=== PATIENT | female | born 1975 | race Caucasian/White ===

== ENCOUNTER → 2019-12-21 09:40 | Outpatient (BNVA) | payer SELFPAY | PROVIDERS: Family Provider Family Medicine; Visit Provider Nurse Practitioner Family | DX: E11.9 Type 2 diabetes mellitus without complications (principal); G62.9 Polyneuropathy, unspecified; I10 Essential (primary) hypertension; E78.5 Hyperlipidemia, unspecified | CPT/HCPCS: 80053; 80061; 83036; 84443; 85025 ==

== ENCOUNTER → 2020-03-27 08:57 | Outpatient (BNVA) | payer SELFPAY | PROVIDERS: Family Provider Family Medicine; PCP Nurse Practitioner Family; Visit Provider Nurse Practitioner | DX: R05 Cough (principal) | CPT/HCPCS: 71046 ==

== ENCOUNTER → 2020-04-04 14:15 | Outpatient (BNVA) | payer SELFPAY | PROVIDERS: Family Provider Family Medicine; PCP Nurse Practitioner Family; Visit Provider Nurse Practitioner | DX: K11.20 Sialoadenitis, unspecified (principal) | CPT/HCPCS: 85025 ==

== ENCOUNTER → 2020-04-26 14:40 | Outpatient (BNVA) | payer SELFPAY | PROVIDERS: Family Provider Family Medicine; PCP Nurse Practitioner Family; Visit Provider Nurse Practitioner Family | DX: E11.65 Type 2 diabetes mellitus with hyperglycemia (principal); Z79.4 Long term (current) use of insulin; R10.9 Unspecified abdominal pain | CPT/HCPCS: 80053; 80061; 82150; 83036; 83690; 85025 ==

== ENCOUNTER 2020-07-23 11:30 | Inpatient (IN) | payer OTHER, SELFPAY ==
[2020-07-23] VITALS (78 sets, daily range): BP systolic 116–166; BP diastolic 46–102; PULSE 70–105; RESP 13–29; TEMP 36.6–36.9; O2SAT 82–95; BMI 41.0
--- NOTE | 2020-07-23 11:51 | XRR_ITS ---
PROCEDURE INFORMATION: Exam: XR Chest, 1 View Exam date and time: 07/23/2020 11:55 AM Age: 44 years old Clinical indication: Shortness of breath; Additional info: Covid TECHNIQUE: Imaging protocol: XR of the chest Views: 1 view. COMPARISON: CR XR chest 2V* [id number] 03/27/2020 8:57 AM FINDINGS: Lungs: Hypoinflation with interstitial prominence and mild left-sided airspace disease. Pleural space: No significant pleural effusion. Heart/Mediastinum: No cardiomegaly. Bones/joints: Mild degenerative change. XR/XR chest 1V portable [id number] IMPRESSION: Hypoinflation with interstitial prominence and mild left-sided airspace disease.
--- NOTE | 2020-07-23 11:58 | W.ED.SOB ---
HPI - SOB/Dyspnea General: Chief Complaint: Shortness of Breath/Dyspnea Stated Complaint: COVID POSITIVE WITH WORSE SOB Time Seen by Provider: 07/23/20 11:40 History of Present Illness: HPI Narrative: This patient is a 44-year-old female who presents today with shortness of breath. She has a positive COVID test done on Friday. She believes she was exposed at work 13 days ago. She started developing symptoms 8 days ago. She had not had shortness of breath until this morning. She has had fever, cough, body aches, nausea, loss of taste and smell. She is a diabetic and is morbidly obese. She has hypertension that is well controlled with medication. MD elicited complaint: shortness of breath and cough Pertinent past history: diabetes Onset (ago): day(s) (COVID symptoms 8 days ago, shortness of breath today) Timing: constant Severity: moderate Exacerbating factors: nothing Relieving factors: nothing Known history of: diabetes Associated symptoms: Reports cough, fever(s), myalgias and nausea Review of Systems General: Reports: 10 or more systems reviewed and unremarkable except in HPI and below Const: Reports: fever(s) GI: Reports: nausea PFSH ED PFSH: Medical History Anxiety Hyperlipemia Hypertension Neuropathy Surgical History History of cholecystectomy 2009 History of laparoscopic-assisted vaginal hysterectomy BSO 2017 History of tubal ligation (~2002) Family History Mother , age 65 Diabetes Cancer Pancreatic Heart disease Denies family history of Anesthesia complication Bleeding disorder Social History Smoking and tobacco status: never smoked Second hand smoke exposure: No Smoking risk assessment/counseling performed?: No Alcohol intake: never Desire information about alcohol rehabilitation?: No Counseling given: No Desire information about substance/drug rehabilitation?: No Counseling given: No Adopted: No Caregiver/support person: No Lives independently: Yes Household members: spouse and children Housing: House Marital status: service: No Current occupational status: employed Current occupation: [employer] Current occupational exposures/hazards: No History of recent travel: No Current gender identity: Female Physical Exam Const: COMMON NORMALS: patient oriented x3 and alert GENERAL APPEARANCE: cooperative, in distress (Mild) and anxious NUTRITIONAL APPEARANCE: obese morbidly obese HENMT: HEAD & SCALP: normal to inspection FACE & SINUS: normal facial exam Eye: GENERAL EYE: appearance normal, both eyes and all related structures Neck/C-Spine: COMMON NORMALS: supple, no meningeal signs and no JVD Chest: COMMONS NORMALS: normal inspection of the chest Resp: EFFORT & INSPECTION: Yes tachypneic and Yes labored (Slightly) AUSCULTATION: rhonchi (Bilateral, left worse than right) Cardio: COMMON NORMALS: no JVD, regular rate, regular rhythm and No murmurs present (Cardio) RATE: regular rate RHYTHM: regular rhythm GI: COMMON NORMALS: Normal to inspection, nondistended, normoactive bowel sounds present, Soft to palpation and non-tender INSPECTION: Yes normal to inspection AUSCULTATION: Yes normoactive bowel sounds PALPATION: Yes Soft to palpation Back/Pelvis: COMMON NORMALS: thoracic and lumbar spine normal to inspection Extremity: COMMON NORMALS: normal to inspection Neuro: COMMON NORMALS: patient oriented x3, moves all extremities, no focal motor deficits and no sensory deficits noted SENSORIUM/ORIENTATION: Yes alert MENINGEAL SIGNS: Yes no meningeal signs Psych: COMMON NORMALS: mental status grossly normal, cooperative and normal affect Skin: COMMON NORMALS: no rashes or lesions noted and turgor normal NARRATIVE SKIN EXAM: Areas of excoriation on both forearms GENERAL SKIN EXAM: no rashes or lesions noted and turgor normal Course ED course: This patient's room air saturation bounced between 90 and 93 while resting on the stretcher. Her chest x-ray shows some patchy infiltrates. Her labs are consistent with developing COVID inflammation. I discussed the options of following this at home versus coming into the hospital for oxygen and observation. Given that her oxygen is very borderline and she has multiple risk factors coupled with the fact that she lives a good distance from the hospital I think it is reasonable to admit her for treatment. She prefers this option and has been started on Decadron, Lovenox, remdesivir. Dr. Borrero will admit her to the VICU. Vital Signs: Vital signs: Vital Signs Temperature 98.4 F 07/23/20 11:38 Pulse Rate 96 07/23/20 11:38 Respiratory Rate 14 07/23/20 11:38 Blood Pressure 138/86 07/23/20 11:38 Pulse Oximetry 90 07/23/20 11:38 MDM - SOB/Dyspnea Lab Data: Labs: Lab Results 07/23/20 07/23/20 07/23/20 Range/Units 11:50 12:00 12:00 WBC 3.3 L (4.0-10.0) 10^3/ uL RBC 4.97 (4.1-5.3) 10^6/u L Hgb 14.0 (11.5-15.3) g/dL Hct 41.8 (37.0-47.0) % MCV 84.1 (81-99) fL MCH 28.2 (28.0-34.0) pg MCHC 33.5 (30.0-36.0) g/dL RDW 12.7 (12.1-15.1) % Plt Count 151 (130-400) 10^3/c mm MPV 10.5 H (7.4-10.4) fL Neut % (Auto) 64.4 % Lymph % (Auto) 27.1 % Hopkins % (Auto) 6.7 % Eos % (Auto) 0.0 % Baso % (Auto) 0.3 % Neut # (Auto) 2.11 (1.8-7.7) 10^3/u L Lymph # (Auto) 0.9 (0.8-4.8) 10^3/u L Hopkins # (Auto) 0.2 (0.2-0.9) 10^3/u L Eos # (Auto) 0.0 (0.0-0.8) 10^3/u L Baso # (Auto) 0.0 (0.0-0.1) 10^3/u L Nucleated RBC % (a uto) 0 % Nucleated RBCs # 0.0 /100WBC PT 12.80 (12.1-14.9) SECO NDS INR 0.93 (0.8-1.2) Fibrinogen 450 (174-498) mg/dL D-Dimer 1.02 H (0-0.59) ug/mIFE U Sodium 136 (136-145) mmol/L Potassium 3.6 (3.5-5.1) mmol/L Chloride 99 (98-107) mmol/L Carbon Dioxide 24 (22-29) mmol/L Anion Gap 16.6 (5-19) BUN 6 (6-20) mg/dL Creatinine 0.6 (0.5-0.9) mg/dL GFR Calculation 107.6 (90-130) mL/min Glucose 281 H (65-115) mg/dL Calculated Osmolal ity 288 (285-295) mOsm/k g Lactic Acid (0.5-2.2) mmol/L Calcium 8.8 (8.5-10.5) mg/dL Ferritin 293 H (15-150) ng/mL Total Bilirubin 0.5 (0.15-1.2) mg/dL AST 38 H (0-32) U/L ALT 40 H (0-33) U/L Alkaline Phosphata se 82 (35-105) IU/L C-Reactive Protein 35.9 H (0.0-4.9) mg/L NT-Pro-B Natriuret Pep 13 (0-125) pg/mL Total Protein 7.5 (6.6-8.7) g/dL Albumin 4.1 (3.5-5.2) g/dL Globulin 3.4 (1.3-4.6) g/dL Procalcitonin 0.08 (0-0.5) ng/mL HCG, Qual (Negative) Influenza Type A A g (Negative) Influenza Type B A g (Negative) 07/23/20 07/23/20 07/23/20 Range/Units 12:00 12:00 12:04 WBC (4.0-10.0) 10^3/ uL RBC (4.1-5.3) 10^6/u L Hgb (11.5-15.3) g/dL Hct (37.0-47.0) % MCV (81-99) fL MCH (28.0-34.0) pg MCHC (30.0-36.0) g/dL RDW (12.1-15.1) % Plt Count (130-400) 10^3/c mm MPV (7.4-10.4) fL Neut % (Auto) % Lymph % (Auto) % Hopkins % (Auto) % Eos % (Auto) % Baso % (Auto) % Neut # (Auto) (1.8-7.7) 10^3/u L Lymph # (Auto) (0.8-4.8) 10^3/u L Hopkins # (Auto) (0.2-0.9) 10^3/u L Eos # (Auto) (0.0-0.8) 10^3/u L Baso # (Auto) (0.0-0.1) 10^3/u L Nucleated RBC % (a uto) % Nucleated RBCs # /100WBC PT (12.1-14.9) SECO NDS INR (0.8-1.2) Fibrinogen (174-498) mg/dL D-Dimer (0-0.59) ug/mIFE U Sodium (136-145) mmol/L Potassium (3.5-5.1) mmol/L Chloride (98-107) mmol/L Carbon Dioxide (22-29) mmol/L Anion Gap (5-19) BUN (6-20) mg/dL Creatinine (0.5-0.9) mg/dL GFR Calculation (90-130) mL/min Glucose (65-115) mg/dL Calculated Osmolal ity (285-295) mOsm/k g Lactic Acid 2.0 (0.5-2.2) mmol/L Calcium (8.5-10.5) mg/dL Ferritin (15-150) ng/mL Total Bilirubin (0.15-1.2) mg/dL AST (0-32) U/L ALT (0-33) U/L Alkaline Phosphata se (35-105) IU/L C-Reactive Protein (0.0-4.9) mg/L NT-Pro-B Natriuret Pep (0-125) pg/mL Total Protein (6.6-8.7) g/dL Albumin (3.5-5.2) g/dL Globulin (1.3-4.6) g/dL Procalcitonin (0-0.5) ng/mL HCG, Qual Negative (Negative) Influenza Type A A g Negative (Negative) Influenza Type B A g Negative (Negative) Discharge Plan Discharge Admit Provider: Jairo Borrero Coding Level of Care Code ED Tile Layer Supervisor for Chg Fwd Exam Comprehensive
[2020-07-23] MEDS: dexamethasone 10 mg/mL INJ IVP (12:09)
[2020-07-23] MEDS: enoxaparin 120 mg/0.8 mL Syringe SUBCUT (12:09)
[2020-07-23 12:13] LABS: Basophils % 0.3 %; Hematocrit 41.8 % (37.0-47.0); Lymphocytes # 0.9 10^3/uL (0.8-4.8); Lymphocytes % 27.1 %; Mean Corpuscular HGB Conc 33.5 g/dL (30.0-36.0); Mean Corpuscular Hemoglobin 28.2 pg (28.0-34.0); Mean Corpuscular Volume 84.1 fL (81-99); Mean Platelet Volume 10.5 fL (7.4-10.4); Monocytes # 0.2 10^3/uL (0.2-0.9); Monocytes % 6.7 %; Neutrophils # 2.11 10^3/uL (1.8-7.7); Neutrophils % 64.4 %; Nucleated Red Blood Cells % 0 %; Platelet Count 151 10^3/cmm (130-400); Red Blood Count 4.97 10^6/uL (4.1-5.3); Red Cell Distribution Width 12.7 % (12.1-15.1); White Blood Count 3.3 10^3/uL (4.0-10.0)
[2020-07-23 12:37] LABS: Fibrinogen 450 mg/dL (174-498); INR 0.93 (0.8-1.2)
[2020-07-23 12:40] LABS: Influenza A by IFA Negative (Negative); Influenza B by IFA Negative (Negative)
[2020-07-23 12:40] LABS: D Dimer 1.02 ug/mIFEU (0-0.59)
[2020-07-23 12:44] LABS: Alanine Aminotransferase 40 U/L (0-33); Albumin Level 4.1 g/dL (3.5-5.2); Alkaline Phosphatase 82 IU/L (35-105); Anion Gap 16.6 (5-19); Aspartate Amino Transferase 38 U/L (0-32); Blood Urea Nitrogen 6 mg/dL (6-20); Calcium 8.8 mg/dL (8.5-10.5); Carbon Dioxide 24 mmol/L (22-29); Chloride 99 mmol/L (98-107); Globulin 3.4 g/dL (1.3-4.6); Glomerular Filtration Rate 107.6 mL/min (90-130); Glucose 281 mg/dL (65-115); NT Pro B Type Natriuretic Pept 13 pg/mL (0-125); Osmolality Calculated 288 mOsm/kg (285-295); Potassium 3.6 mmol/L (3.5-5.1); Sodium 136 mmol/L (136-145); Total Bilirubin 0.5 mg/dL (0.15-1.2); Total Protein 7.5 g/dL (6.6-8.7)
[2020-07-23 12:45] LABS: HCG, Serum Qual Negative (Negative)
[2020-07-23 14:19] LABS: Procalcitonin 0.08 ng/mL (0-0.5)
[2020-07-23 14:31] LABS: C Reactive Protein 35.9 mg/L (0.0-4.9); Ferritin 293 ng/mL (15-150)
--- NOTE | 2020-07-23 15:53 | PM.HP ---
Providers/Chief Complaint Admitting Physician: Jairo Borrero MD Primary Care Provider: KARTIK Vance Chief Complaint: COVID POSITIVE WITH WORSE SOB History of Present Illness Yara Robert is a 44 year old female with past medical history of hypertension diabetes and allergic rhinitis came in with chief complaint of low-grade fever, chills, malaise, generalized body pain, headache, nausea vomiting diarrhea, anosmia, abdominal discomfort, headache, dry cough started on Friday. Her symptoms began after being exposed to her colleagues at work place. Her is also COVID positive and currently he is also in hospital. X-ray chest is suggestive of airspace disease. Review of Systems General: Reports: 10 or more systems reviewed and unremarkable except in HPI and below Const: Reports: fever(s), chills, body aches, change in appetite, fatigue, malaise, night sweats and diaphoresis Eyes: Denies: change in vision, blurry vision, photophobia, eye discomfort, eye discharge, eye redness, yellow eyes or dry eyes ENMT: Reports: throat pain; Denies: enlarged tonsils, odynophagia, mouth pain, swelling of lips/tongue or bleeding gums Card: Denies: palpitations, edema, swelling of feet/ankles, dyspnea on exertion, orthopnea or leg pain with exertion Resp: Denies: dyspnea, productive cough, wheezing or pain on inspiration GI: Denies: abdominal pain, nausea, vomiting, diarrhea or constipation : Denies: flank pain Musc: Denies: back pain, extremity pain or extremity swelling Neuro: Denies: headache(s), difficulty walking or confusion Psych: Denies: anxiety, depression or mood swings Medications/Allergies Home Medications Medication Instructions Recorded Confirmed Last Taken Type triamcinolone acetonide 0.1 % 1 applic TOPICAL BID #80 gm 12/21/19 07/23/20 Unknown Rx topical cream pen needle, diabetic 31 gauge x #100 each 01/19/20 07/23/20 Unknown Rx 1/4 ascorbate calcium (vitamin C) 500 500 mg PO BID 03/14/20 07/23/20 Unknown History mg tablet cranberry extract 250 mg capsule 250 mg PO BID cap 03/14/20 07/23/20 Unknown History multivitamin with minerals 1 tab PO BID tab 03/14/20 07/23/20 Unknown History albuterol sulfate 90 mcg/actuation 2 puff INHALATION Q6H PRN #18 gm 04/22/20 07/23/20 07/23/20 Rx aerosol inhaler exenatide See Rx Instructions .ROUTE 04/26/20 07/23/20 07/22/20 Rx .COMPLEX #1.2 ml gabapentin 300 mg capsule See Rx Instructions .ROUTE 04/26/20 07/23/20 07/23/20 Rx .COMPLEX #120 cap insulin glargine 100 unit/mL (3 See Rx Instructions .ROUTE 04/26/20 07/23/20 07/22/20 Rx mL) subcutaneous pen .COMPLEX #45 ml lisinopril 10 mg tablet See Rx Instructions .ROUTE 04/26/20 07/23/20 07/22/20 Rx .COMPLEX #30 tab sertraline 100 mg tablet 200 mg PO DAILY #60 tab 04/26/20 07/23/20 07/22/20 Rx glipizide 5 mg tablet 5 mg PO BID #60 tab 05/09/20 07/23/20 07/23/20 Rx pravastatin 80 mg tablet 80 mg PO DAILY #30 tab 05/09/20 07/23/20 07/22/20 Rx montelukast 10 mg tablet See Rx Instructions .ROUTE 07/14/20 07/23/20 07/22/20 Rx .COMPLEX #30 tab omeprazole 20 mg capsule,delayed See Rx Instructions .ROUTE 07/14/20 07/23/20 07/22/20 Rx release .COMPLEX #30 cap metformin 500 mg PO BID 07/23/20 07/23/20 07/22/20 History Allergies Allergy/AdvReac Type Severity Reaction Status Date / Time No Known Allergies Allergy Verified 07/23/20 13:49 PFSH Acute PFSH: Medical History Anxiety Hyperlipemia Hypertension Neuropathy Surgical History History of cholecystectomy 2009 History of laparoscopic-assisted vaginal hysterectomy BSO 2016 History of tubal ligation (~2002) Family History Mother , age 65 Diabetes Cancer Pancreatic Heart disease Denies family history of Anesthesia complication Bleeding disorder Social History Smoking and tobacco status: never smoked Second hand smoke exposure: No Smoking risk assessment/counseling performed?: No Alcohol intake: never Desire information about alcohol rehabilitation?: No Counseling given: No Desire information about substance/drug rehabilitation?: No Counseling given: No Adopted: No Caregiver/support person: No Lives independently: Yes Household members: spouse and children Housing: House Marital status: service: No Current occupational status: employed Current occupation: [employer] Current occupational exposures/hazards: No History of recent travel: No Current gender identity: Female Vitals/I&O/Wt Last Vital Signs Temp 98.4 F 07/23/20 11:38 Pulse 101 H 07/23/20 15:44 Resp 28 H 07/23/20 15:44 BP 146/78 07/23/20 15:44 Pulse Ox 89 L 07/23/20 15:44 Weight last 48 hrs Weight 122.47 kg Physical Exam Const: COMMON NORMALS: patient oriented x3 HENMT: COMMON NORMALS: normocephalic, atraumatic, hearing grossly normal bilaterally and external ears normal HEAD & SCALP: normocephalic and atraumatic EXTERNAL EAR: Yes external ears normal Eye: COMMON NORMALS: no scleral icterus GENERAL EYE: appearance normal, both eyes and all related structures Chest: COMMONS NORMALS: normal inspection of the chest and normal palpation of entire chest wall CHEST: Yes Symmetrical chest wall rise Resp: COMMON NORMALS: normal respiratory effort, No retractions, No use of accessory muscles and clear to auscultation bilaterally EFFORT & INSPECTION: Yes symmetric chest movement AUSCULTATION: clear to auscultation bilaterally Cardio: COMMON NORMALS: regular rate, regular rhythm, S1 normal heart sound present, S2 normal heart sound present, No gallops present (Cardio), No murmurs present (Cardio), No rub (Cardio) and Peripheral pulses 2+ throughout RATE: regular rate RHYTHM: regular rhythm HEART SOUNDS: S1 normal heart sound present and S2 normal heart sound present PERIPHERAL PULSES: Peripheral pulses 2+ throughout GI: COMMON NORMALS: Normal to inspection, nondistended, normoactive bowel sounds present, Soft to palpation, non-tender, No hepatosplenomegaly present and no masses AUSCULTATION: Yes normoactive bowel sounds PALPATION: Yes Soft to palpation and Yes No hepatosplenomegaly present RECTAL EXAM: deferred Extremity: COMMON NORMALS: no clubbing, cyanosis or edema and no pedal edema Neuro: COMMON NORMALS: patient oriented x3 Data : 07/23/20 12:00 07/23/20 11:50 Micro: Microbiology 07/23/20 12:00 Blood Culture - Preliminary Blood SPECIMEN COLLECTED 07/23/20 11:52 Blood Culture - Preliminary Blood SPECIMEN COLLECTED CXR: I personally reviewed and interpreted this imaging study as follows: My impression: interstitial prominence and mild left-sided airspace disease. Radiologist's impression: Lungs: Hypoinflation with interstitial prominence and mild left-sided airspace disease. Pleural space: No significant pleural effusion. Heart/Mediastinum: No cardiomegaly. Bones/joints: Mild degenerative change. A&P Assessment and plan (1) Pneumonia due to COVID-19 virus: She comes in after known exposure to COVID-19 patient after being tested positive herself as well as her . She has typical symptoms of COVID-19 which includes and is not limited low-grade fever, chills, malaise, generalized body pain, headache, nausea vomiting diarrhea, anosmia, abdominal discomfort, headache, dry cough. X-ray chest is suggestive of airspace disease. Our current plan is to follow COVID protocol. Which includes remdesevir, dexamethasone, along with symptomatic treatment. At present she is requiring 2 L of oxygen via nasal cannula to maintain a saturation above 95%. She has minimum desaturation on exertion(high at 90s less than 95%). We will encourage her to use incentive spirometer. We will closely monitor the inflammatory marker includes interleukin's, CRP, ferritin. We will also monitor, Ddimer trend and keep a low threshold to initiate therapeutic anticoagulation is she is obese and has other hypercoagulable risk factors. Status: Acute (2) Type 2 diabetes mellitus: Kept on low-dose sliding scale. Monitor fingerstick Status: Chronic Qualifiers: Diabetes mellitus complication status: with hyperglycemia Diabetes mellitus termite treater helper insulin use: with termite treater helper use Qualified Code(s): E11.65 - Type 2 diabetes mellitus with hyperglycemia; Z79.4 - [facility] (current) use of insulin (3) Hypertension: Continue lisinopril 20 mg oral daily Status: Acute (4) Hyperlipemia: Continue atorvastatin 40 mg oral daily Status: Acute (5) Allergic rhinitis: No acute intervention Status: Acute Additional A&P Information CODE STATUS: Full code DVT prophylaxis: Lovenox 40 mg subc daily Attestations Medical Necessity Statement*: She needs to be in hospital for management of COVID pneumonia as well as other complications related to COVID. Coding Level of Care Code Acute Sales Representative Health Insurance for [employer] Fwd Exam Comprehensive Diagnoses Pneumonia due to COVID-19 virus U07.1; J12.89 Type 2 diabetes mellitus E11.65; Z79.4 Diabetes mellitus complication status: with hyperglycemia Diabetes mellitus termite treater helper insulin use: with termite treater helper use Hypertension I10 Hyperlipemia E78.5 Allergic rhinitis J30.9
[2020-07-23 16:10] LABS: Glucose Point of Care 272 mg/dL (70-110)
[2020-07-23] MEDS: albuterol 8 gm MDI 1 PUFF INHALATION ×2 (16:28→20:47)
[2020-07-23] MEDS: montelukast sodium 10 mg Tablet PO (17:18)
[2020-07-23] MEDS: triamcinolone 0.1% cream 15 gm 1 APPLIC TOPICAL (17:18)
[2020-07-23] MEDS: lisinopril 20 mg Tablet PO (17:18)
[2020-07-23 20:03] LABS: Glucose Point of Care 357 mg/dL (70-110)
[2020-07-23] MEDS: atorvastatin 40 mg Tablet PO (20:48)
[2020-07-24] VITALS (69 sets, daily range): BP systolic 86–167; BP diastolic 52–107; PULSE 61–91; RESP 15–30; TEMP 36.6–37.1; O2SAT 87–98; BMI 41.8
[2020-07-24] MEDS: albuterol 8 gm MDI 1 PUFF INHALATION ×6 (04:00→20:00)
[2020-07-24 05:12] LABS: Basophils % 0.3 %; Hematocrit 38.2 % (37.0-47.0); Hemoglobin 12.9 g/dL (11.5-15.3); Lymphocytes # 0.9 10^3/uL (0.8-4.8); Lymphocytes % 22.8 %; Mean Corpuscular HGB Conc 33.8 g/dL (30.0-36.0); Mean Corpuscular Hemoglobin 28.1 pg (28.0-34.0); Mean Corpuscular Volume 83.2 fL (81-99); Mean Platelet Volume 10.5 fL (7.4-10.4); Monocytes # 0.3 10^3/uL (0.2-0.9); Monocytes % 6.7 %; Neutrophils # 2.66 10^3/uL (1.8-7.7); Neutrophils % 68.9 %; Nucleated Red Blood Cells % 0 %; Platelet Count 174 10^3/cmm (130-400); Red Blood Count 4.59 10^6/uL (4.1-5.3); Red Cell Distribution Width 12.8 % (12.1-15.1); White Blood Count 3.9 10^3/uL (4.0-10.0)
[2020-07-24 05:39] LABS: Alanine Aminotransferase 34 U/L (0-33); Alkaline Phosphatase 70 IU/L (35-105); Aspartate Amino Transferase 29 U/L (0-32); Blood Urea Nitrogen 10 mg/dL (6-20); Calcium 8.6 mg/dL (8.5-10.5); Carbon Dioxide 22 mmol/L (22-29); Chloride 102 mmol/L (98-107); Glomerular Filtration Rate 171.8 mL/min (90-130); Glucose 297 mg/dL (65-115); Magnesium 2.1 mg/dL (1.7-2.3); Osmolality Calculated 293 mOsm/kg (285-295); Sodium 138 mmol/L (136-145); Total Bilirubin 0.3 mg/dL (0.15-1.2)
[2020-07-24 05:44] LABS: Anion Gap 17.8 (5-19)
[2020-07-24 05:45] LABS: Potassium 3.8 mmol/L (3.5-5.1); Procalcitonin 0.09 ng/mL (0-0.5)
[2020-07-24 07:58] LABS: Glucose Point of Care 265 mg/dL (70-110)
[2020-07-24] MEDS: enoxaparin 40 mg/0.4 mL Syringe SUBCUT (09:29)
[2020-07-24] MEDS: dexamethasone 10 mg/mL INJ 6 MG IVP (09:30)
[2020-07-24] MEDS: lisinopril 20 mg Tablet PO ×2 (09:30→17:45)
[2020-07-24] MEDS: pantoprazole DR 40 mg Tablet PO (09:30)
[2020-07-24] MEDS: triamcinolone 0.1% cream 15 gm 1 APPLIC TOPICAL ×2 (09:42→17:13)
[2020-07-24] MEDS: sertraline 100 mg Tablet 200 MG PO (09:47)
[2020-07-24 12:02] LABS: Glucose Point of Care 305 mg/dL (70-110)
[2020-07-24] MEDS: benzonatate 100 mg Capsule 200 MG PO (13:08)
--- NOTE | 2020-07-24 14:33 | PM.PN ---
Subjective Subjective: Interval history: Patient is doing fine. She is still having some nonproductive cough and has minimal short of breath with exertion. Denies any fever any chills, nausea vomiting abdominal pain. overall she has improved. We will continue to monitor her respiratory function. She is already on COVID protocol (LUPE and Dexa) Vitals and labs have been reviewed. Medications: Reviewed: Yes Vitals/I&O/Wt Last Vital Signs Temp 98.7 F 07/24/20 12:00 Pulse 78 07/24/20 12:00 Resp 22 H 07/24/20 12:00 BP 164/87 07/24/20 12:00 Pulse Ox 93 07/24/20 12:00 07/23/20 07/24/20 07/24/20 22:59 06:59 14:59 Intake Total 910 / 910 450 / 1360 960 / 960 Balance 910 / 910 450 / 1360 960 / 960 Weight last 48 hrs Weight 124.795 kg Weight 122.47 kg Physical Exam Const: COMMON NORMALS: patient oriented x3 HENMT: COMMON NORMALS: normocephalic, atraumatic, hearing grossly normal bilaterally and external ears normal HEAD & SCALP: normocephalic and atraumatic EXTERNAL EAR: Yes external ears normal Eye: COMMON NORMALS: no scleral icterus GENERAL EYE: appearance normal, both eyes and all related structures Chest: COMMONS NORMALS: normal inspection of the chest and normal palpation of entire chest wall CHEST: Yes Symmetrical chest wall rise Resp: COMMON NORMALS: normal respiratory effort, No retractions, No use of accessory muscles and clear to auscultation bilaterally EFFORT & INSPECTION: Yes symmetric chest movement AUSCULTATION: clear to auscultation bilaterally Cardio: COMMON NORMALS: regular rate, regular rhythm, S1 normal heart sound present, S2 normal heart sound present, No gallops present (Cardio), No murmurs present (Cardio), No rub (Cardio) and Peripheral pulses 2+ throughout RATE: regular rate RHYTHM: regular rhythm HEART SOUNDS: S1 normal heart sound present and S2 normal heart sound present PERIPHERAL PULSES: Peripheral pulses 2+ throughout GI: COMMON NORMALS: Normal to inspection, nondistended, normoactive bowel sounds present, Soft to palpation, non-tender, No hepatosplenomegaly present and no masses AUSCULTATION: Yes normoactive bowel sounds PALPATION: Yes Soft to palpation and Yes No hepatosplenomegaly present RECTAL EXAM: deferred Extremity: COMMON NORMALS: no clubbing, cyanosis or edema and no pedal edema Neuro: COMMON NORMALS: patient oriented x3 Data : 07/24/20 04:40 07/24/20 04:40 Micro: Microbiology 07/23/20 12:00 Blood Culture - Preliminary Blood NEGATIVE TO DATE 07/23/20 18:00 Blood Culture - Preliminary Blood SPECIMEN COLLECTED A&P Assessment and plan (1) Pneumonia due to COVID-19 virus: She comes in after known exposure to COVID-19 patient after being tested positive herself as well as her . She has typical symptoms of COVID-19 which includes and is not limited low-grade fever, chills, malaise, generalized body pain, headache, nausea vomiting diarrhea, anosmia, abdominal discomfort, headache, dry cough. X-ray chest is suggestive of airspace disease. Our current plan is to follow COVID protocol. Which includes remdesevir, dexamethasone, along with symptomatic treatment. At present she is requiring 2 L of oxygen via nasal cannula to maintain a saturation above 95%. She has minimum desaturation on exertion(high at 90s less than 95%). We will encourage her to use incentive spirometer. We will closely monitor the inflammatory marker includes interleukin's, CRP, ferritin. We will also monitor, Ddimer trend and keep a low threshold to initiate therapeutic anticoagulation is she is obese and has other hypercoagulable risk factors. Status: Acute (2) Type 2 diabetes mellitus: Kept on low-dose sliding scale. Monitor fingerstick Status: Chronic Qualifiers: Diabetes mellitus skilled nursing insulin use: with watermelon inspector use Diabetes mellitus complication status: with hyperglycemia Qualified Code(s): E11.65 - Type 2 diabetes mellitus with hyperglycemia; Z79.4 - superintendent container terminal (current) use of insulin (3) Hypertension: Continue lisinopril 20 mg oral daily Status: Acute (4) Hyperlipemia: Continue atorvastatin 40 mg oral daily Status: Acute (5) Allergic rhinitis: No acute intervention Status: Acute Additional A&P Information CODE STATUS: Full code DVT prophylaxis: Lovenox 40 mg subc daily Attestations Medical Necessity Statement*: She needs to be in hospital for continued management of COVID pneumonia. Coding Level of Care Code Acute Loan Services Professional for Chg Fwd Diagnoses Pneumonia due to COVID-19 virus U07.1; J12.89 Type 2 diabetes mellitus E11.65; Z79.4 Diabetes mellitus watermelon inspector insulin use: with skilled nursing use Diabetes mellitus complication status: with hyperglycemia Hypertension I10 Hyperlipemia E78.5 Allergic rhinitis J30.9
[2020-07-24 16:07] LABS: Glucose Point of Care 321 mg/dL (70-110)
[2020-07-24] MEDS: montelukast sodium 10 mg Tablet PO (17:45)
--- NOTE | 2020-07-24 18:45 | PC.NURSE ---
Received report on patient from Tiny Crockett RN. Assumed care at this time.
[2020-07-24 21:00] LABS: Glucose Point of Care 305 mg/dL (70-110)
[2020-07-24] MEDS: atorvastatin 40 mg Tablet PO (21:05)
--- NOTE | 2020-07-24 23:46 | PC.NURSE ---
Received report on patient from Tiny Crockett RN. Assumed care at this time.
[2020-07-25] VITALS (22 sets, daily range): BP systolic 120–163; BP diastolic 51–89; PULSE 54–86; RESP 14–29; TEMP 36.6–36.9; O2SAT 92–98; BMI 41.8
[2020-07-25] MEDS: albuterol 8 gm MDI 1 PUFF INHALATION ×6 (00:05→21:01)
[2020-07-25 06:22] LABS: Basophils % 0.2 %; Hematocrit 37.9 % (37.0-47.0); Hemoglobin 12.7 g/dL (11.5-15.3); Lymphocytes # 1.4 10^3/uL (0.8-4.8); Mean Corpuscular HGB Conc 33.5 g/dL (30.0-36.0); Mean Corpuscular Hemoglobin 28.6 pg (28.0-34.0); Mean Corpuscular Volume 85.4 fL (81-99); Monocytes # 0.3 10^3/uL (0.2-0.9); Monocytes % 4.5 %; Neutrophils # 4.19 10^3/uL (1.8-7.7); Neutrophils % 70.3 %; Nucleated Red Blood Cells % 0 %; Platelet Count 204 10^3/cmm (130-400); Red Blood Count 4.44 10^6/uL (4.1-5.3); Red Cell Distribution Width 12.7 % (12.1-15.1)
[2020-07-25 06:45] LABS: Alanine Aminotransferase 31 U/L (0-33); Albumin Level 3.9 g/dL (3.5-5.2); Alkaline Phosphatase 67 IU/L (35-105); Anion Gap 14.5 (5-19); Aspartate Amino Transferase 24 U/L (0-32); Blood Urea Nitrogen 15 mg/dL (6-20); Calcium 8.4 mg/dL (8.5-10.5); Carbon Dioxide 25 mmol/L (22-29); Chloride 104 mmol/L (98-107); Globulin 3.3 g/dL (1.3-4.6); Glomerular Filtration Rate 171.8 mL/min (90-130); Glucose 241 mg/dL (65-115); Magnesium 2.2 mg/dL (1.7-2.3); Osmolality Calculated 294 mOsm/kg (285-295); Potassium 3.5 mmol/L (3.5-5.1); Sodium 140 mmol/L (136-145); Total Bilirubin 0.4 mg/dL (0.15-1.2); Total Protein 7.2 g/dL (6.6-8.7)
[2020-07-25 06:47] LABS: Procalcitonin 0.07 ng/mL (0-0.5)
[2020-07-25 06:56] LABS: Glucose Point of Care 216 mg/dL (70-110)
[2020-07-25] MEDS: pantoprazole DR 40 mg Tablet PO (09:21)
[2020-07-25] MEDS: multivitamin therapeutic Tablet 1 TAB PO (09:21)
[2020-07-25] MEDS: lisinopril 20 mg Tablet PO ×2 (09:22→17:01)
[2020-07-25] MEDS: ascorbic acid 500 mg Tablet PO ×2 (09:22→17:01)
[2020-07-25] MEDS: enoxaparin 40 mg/0.4 mL Syringe SUBCUT (09:22)
[2020-07-25] MEDS: dexamethasone 10 mg/mL INJ 6 MG IVP (09:23)
[2020-07-25] MEDS: gabapentin 300 mg Capsule 600 MG PO ×2 (09:23→17:01)
[2020-07-25] MEDS: triamcinolone 0.1% cream 15 gm 1 APPLIC TOPICAL (09:25)
[2020-07-25 09:28] LABS: Estmated Average Glucose 183
[2020-07-25] MEDS: insulin glargine 100 units/1 mL 30 UNIT SUBCUT ×2 (09:42→17:01)
--- NOTE | 2020-07-25 09:44 | P.PN_ITS ---
Subjective Subjective: Interval history: In the Last 24 hours patient has continue to require supplemental oxygen.She has needed 4 L of oxygen through nasal cannula. We have encouraged her to move more out of bed also to increase her p.o. intake less try to rehydrate herself as much as possible. She has remained afebrile, hemodynamically stable. Labs reviewed. Medications: Reviewed: Yes Vitals/I&O/Wt Last Vital Signs Temp 97.9 F 07/25/20 03:00 Pulse 58 L 07/25/20 05:00 Resp 22 H 07/25/20 05:00 BP 129/75 07/25/20 05:00 Pulse Ox 95 07/25/20 05:00 07/24/20 07/25/20 07/25/20 22:59 06:59 14:59 Intake Total 1120 / 2080 200 / 2280 Output Total 4 / 1200 / 1204 Balance 1116 / 2076 -1000 / 1076 Weight last 48 hrs Weight 124.602 kg Weight 124.795 kg Weight 122.47 kg Physical Exam Const: COMMON NORMALS: patient oriented x3 HENMT: COMMON NORMALS: normocephalic, atraumatic, hearing grossly normal bilaterally and external ears normal HEAD & SCALP: normocephalic and atraumatic EXTERNAL EAR: Yes external ears normal Eye: COMMON NORMALS: no scleral icterus GENERAL EYE: appearance normal, both eyes and all related structures Chest: COMMONS NORMALS: normal inspection of the chest and normal palpation of entire chest wall CHEST: Yes Symmetrical chest wall rise Resp: COMMON NORMALS: normal respiratory effort, No retractions, No use of accessory muscles and clear to auscultation bilaterally EFFORT & INSPECTION: Yes symmetric chest movement AUSCULTATION: clear to auscultation bilaterally Cardio: COMMON NORMALS: regular rate, regular rhythm, S1 normal heart sound present, S2 normal heart sound present, No gallops present (Cardio), No murmurs present (Cardio), No rub (Cardio) and Peripheral pulses 2+ throughout RATE: regular rate RHYTHM: regular rhythm HEART SOUNDS: S1 normal heart sound present and S2 normal heart sound present PERIPHERAL PULSES: Peripheral pulses 2+ throughout GI: COMMON NORMALS: Normal to inspection, nondistended, normoactive bowel sounds present, Soft to palpation, non-tender, No hepatosplenomegaly present and no masses AUSCULTATION: Yes normoactive bowel sounds PALPATION: Yes Soft to palpation and Yes No hepatosplenomegaly present RECTAL EXAM: deferred Extremity: COMMON NORMALS: no clubbing, cyanosis or edema and no pedal edema Neuro: COMMON NORMALS: patient oriented x3 Data : 07/25/20 04:10 07/25/20 04:10 Micro: Microbiology 07/23/20 18:00 Blood Culture - Preliminary Blood NEGATIVE TO DATE 07/23/20 12:00 Blood Culture - Preliminary Blood NEGATIVE TO DATE A&P Assessment and plan (1) Pneumonia due to COVID-19 virus: She comes in after known exposure to COVID-19 patient after being tested positive herself as well as her . She has typical symptoms of COVID-19 which includes and is not limited low-grade fever, chills, malaise, generalized body pain, headache, nausea vomiting diarrhea, anosmia, abdominal discomfort, he adache, dry cough. X-ray chest is suggestive of airspace disease. Our current plan is to follow COVID protocol. Which includes remdesevir, dexamethasone, along with symptomatic treatment. At present she is requiring 4 L of oxygen via nasal cannula to maintain a saturation above 95%. She has mini mum desaturation on exertion(high at 90s less than 95%). We will encourage her to use incentive spirometer. We will closely monitor the inflammatory marker includes interleukin's, CRP, ferritin. We will also monitor, Ddimer trend and keep a low threshold to initiate therapeutic anticoagulation is she is obese and has other hypercoagulable risk factors. Status: Acute (2) Type 2 diabetes mellitus: on low-dose sliding scale. Added Lantus today for better blood glucose control .monitor fingerstick Status: Chronic Qualifiers: Diabetes mellitus intermission coordinator insulin use: with intermission coordinator use Diabetes mellitus complication status: with hyperglycemia Qualified Code(s): E11.65 - Type 2 diabetes mellitus with hyperglycemia; Z79.4 - buttermaker (current) use of insulin (3) Hypertension: Continue lisinopril 20 mg oral daily Status: Acute (4) Hyperlipemia: Continue atorvastatin 40 mg oral daily Status: Acute (5) Allergic rhinitis: No acute intervention Status: Acute Additional A&P Information CODE STATUS: Full code DVT prophylaxis: Lovenox 40 mg subc daily Attestations Medical Necessity Statement*: Patient needs to be in hospital for continued management of COVID pneumonia Coding Level of Care Code Acute Skid Wrapper for [facility] Fwd Diagnoses Pneumonia due to COVID-19 virus U07.1; J12.89 Type 2 diabetes mellitus E11.65; Z79.4 Diabetes mellitus intermission coordinator insulin use: with longterm use Diabetes mellitus complication status: with hyperglycemia Hypertension I10 Hyperlipemia E78.5 Allergic rhinitis J30.9
[2020-07-25] MEDS: sertraline 100 mg Tablet 200 MG PO (09:45)
[2020-07-25 11:31] LABS: Glucose Point of Care 270 mg/dL (70-110)
[2020-07-25 16:16] LABS: Glucose Point of Care 301 mg/dL (70-110)
[2020-07-25] MEDS: montelukast sodium 10 mg Tablet PO (17:01)
--- NOTE | 2020-07-25 19:30 | PC.NURSE ---
Pt alert and oriented. No acute distress noted. Introduced self to pt. Pt denies any needs at this time.
[2020-07-25] MEDS: atorvastatin 40 mg Tablet 80 MG PO (20:59)
[2020-07-25 21:15] LABS: Glucose Point of Care 303 mg/dL (70-110)
[2020-07-26] VITALS (28 sets, daily range): BP systolic 105–175; BP diastolic 54–92; PULSE 48–96; RESP 14–30; TEMP 36.2–36.9; O2SAT 88–97
[2020-07-26] MEDS: albuterol 8 gm MDI 1 PUFF INHALATION ×5 (01:50→15:17)
[2020-07-26 05:36] LABS: Basophils % 0.1 %; Hematocrit 38.5 % (37.0-47.0); Hemoglobin 12.8 g/dL (11.5-15.3); Lymphocytes % 28.6 %; Mean Corpuscular HGB Conc 33.2 g/dL (30.0-36.0); Mean Corpuscular Hemoglobin 28.3 pg (28.0-34.0); Mean Corpuscular Volume 85.2 fL (81-99); Mean Platelet Volume 10.6 fL (7.4-10.4); Monocytes # 0.4 10^3/uL (0.2-0.9); Monocytes % 5.1 %; Neutrophils # 4.35 10^3/uL (1.8-7.7); Nucleated Red Blood Cells % 0 %; Platelet Count 216 10^3/cmm (130-400); Red Blood Count 4.52 10^6/uL (4.1-5.3); Red Cell Distribution Width 12.5 % (12.1-15.1); White Blood Count 6.8 10^3/uL (4.0-10.0)
[2020-07-26 05:46] LABS: Alanine Aminotransferase 29 U/L (0-33); Albumin Level 3.8 g/dL (3.5-5.2); Alkaline Phosphatase 60 IU/L (35-105); Blood Urea Nitrogen 16 mg/dL (6-20); Calcium 8.3 mg/dL (8.5-10.5); Carbon Dioxide 22 mmol/L (22-29); Chloride 105 mmol/L (98-107); Globulin 3.1 g/dL (1.3-4.6); Glomerular Filtration Rate 171.8 mL/min (90-130); Glucose 189 mg/dL (65-115); Magnesium 2.3 mg/dL (1.7-2.3); Osmolality Calculated 287 mOsm/kg (285-295); Sodium 138 mmol/L (136-145); Total Bilirubin 0.4 mg/dL (0.15-1.2); Total Protein 6.9 g/dL (6.6-8.7)
[2020-07-26 05:47] LABS: Anion Gap 14.6 (5-19); Aspartate Amino Transferase 31 U/L (0-32); Potassium 3.6 mmol/L (3.5-5.1)
--- NOTE | 2020-07-26 05:50 | PC.NURSE ---
Pt resting in bed in no acute distress. Pt denies any needs at this time. Pt has rested well throughout the shift.
[2020-07-26 06:00] LABS: Procalcitonin 0.06 ng/mL (0-0.5)
[2020-07-26 06:36] LABS: Glucose Point of Care 147 mg/dL (70-110)
--- NOTE | 2020-07-26 07:10 | PC.NURSE ---
Patient resting in bed, A&Ox4. O2 sats 97% on 2L O2. O2 titrated down, nurse to continue to monitor.
[2020-07-26] MEDS: ascorbic acid 500 mg Tablet PO ×2 (08:44→17:02)
[2020-07-26] MEDS: sertraline 100 mg Tablet 200 MG PO (08:44)
[2020-07-26] MEDS: gabapentin 300 mg Capsule 600 MG PO ×2 (08:44→17:02)
[2020-07-26] MEDS: pantoprazole DR 40 mg Tablet PO (08:44)
[2020-07-26] MEDS: lisinopril 20 mg Tablet PO ×2 (08:45→17:02)
[2020-07-26] MEDS: insulin glargine 100 units/1 mL 30 UNIT SUBCUT ×2 (08:45→17:01)
[2020-07-26] MEDS: multivitamin therapeutic Tablet 1 TAB PO (08:45)
[2020-07-26] MEDS: triamcinolone 0.1% cream 15 gm 1 APPLIC TOPICAL ×2 (08:45→17:02)
[2020-07-26] MEDS: dexamethasone 4 mg/mL INJ 6 MG IVP (09:48)
[2020-07-26] MEDS: enoxaparin 40 mg/0.4 mL Syringe SUBCUT (09:50)
--- NOTE | 2020-07-26 10:45 | PC.NURSE ---
Patient placed on room air. Patient maintaining o2 sats of 92% and greater. Nurse to continue to monitor.
[2020-07-26 11:03] LABS: Glucose Point of Care 262 mg/dL (70-110)
--- NOTE | 2020-07-26 15:05 | P.PN_ITS ---
Subjective Subjective: Interval history: History and physical was reviewed. Patient reports she is feeling a little bit better. Oxygen is weaned down significantly. She is able to ambulate to the bathroom. Medications: Reviewed: Yes Vitals/I&O/Wt Last Vital Signs Temp 98.5 F 07/26/20 11:40 Pulse 76 07/26/20 11:40 Resp 18 07/26/20 11:40 BP 105/87 07/26/20 11:40 Pulse Ox 91 07/26/20 11:40 07/26/20 07/26/20 07/26/20 06:59 14:59 22:59 Intake Total 840 / 840 Balance 840 / 840 Weight last 48 hrs Weight 126.643 kg Weight 124.602 kg Physical Exam Narrative: EXAM NARRATIVE: General exam is no apparent distress Cardiovascular regular rate and rhythm without murmur Lungs clear no wheezing or crackles Abdomen is soft nontender with positive bowel sounds Extremities no cyanosis clubbing or edema Data : 07/26/20 04:18 07/26/20 04:18 Micro: Microbiology 07/23/20 12:00 Blood Culture - Preliminary Blood Corynebacterium species A&P Assessment and plan (1) Pneumonia due to COVID-19 virus: Overall she appears to be improving. Continue Remdesivir Continue Dexamethasone. She is afebrile If she continues to improve, and is able to stay off oxygen consider discharged home tomorrow. Status: Acute (2) Type 2 diabetes mellitus: Continue Lantus. Continue sliding scale insulin Status: Chronic Qualifiers: Diabetes mellitus remote computer terminal operator insulin use: with remote computer terminal operator use Diabetes mellitus complication status: with hyperglycemia Qualified Code(s): E11.65 - Type 2 diabetes mellitus with hyperglycemia; Z79.4 - senior living (current) use of insulin (3) Hypertension: Continue lisinopril. Pressure under good control Status: Acute (4) Hyperlipemia: Continue statin Status: Acute (5) Allergic rhinitis: No acute intervention Status: Acute Additional A&P Information Full code Lovenox for DVT prophylaxis Possible discharge tomorrow if continues to improve Attestations 2 Medical Necessity Statement*: Needs continued hospitalization for close monitoring secondary to moderate Covid 19 viral pneumonia, receiving Remdesivir and Dexamethasone. Coding Level of Care Code Acute Agricultural Economics Professor for [facility] [place] Diagnoses Pneumonia due to COVID-19 virus U07.1; J12.89 Type 2 diabetes mellitus E11.65; Z79.4 Diabetes mellitus penitentiary insulin use: with penitentiary use Diabetes mellitus complication status: with hyperglycemia Hypertension I10 Hyperlipemia E78.5 Allergic rhinitis J30.9
[2020-07-26 16:41] LABS: Glucose Point of Care 366 mg/dL (70-110)
--- NOTE | 2020-07-26 16:42 | PC.NURSE ---
Dr. Gallegos updated on patient condition. Blood Glucose 366. Telephone order received to increase sliding scale insulin dose to aggressive scale, RBVO. Nurse to continue to monitor.
[2020-07-26] MEDS: montelukast sodium 10 mg Tablet PO (17:02)
--- NOTE | 2020-07-26 18:45 | PC.NURSE ---
Received bedside report on patient from Loraine Mahmood RN. Assumed care at this time.
[2020-07-26 20:35] LABS: Glucose Point of Care 368 mg/dL (70-110)
[2020-07-26] MEDS: atorvastatin 40 mg Tablet 80 MG PO (21:24)
[2020-07-27] VITALS (18 sets, daily range): BP systolic 114–166; BP diastolic 59–96; PULSE 45–77; RESP 1–25; TEMP 36.7; O2SAT 91–99
[2020-07-27 05:05] LABS: Basophils % 0.1 %; Hematocrit 37.6 % (37.0-47.0); Hemoglobin 12.7 g/dL (11.5-15.3); Lymphocytes # 1.9 10^3/uL (0.8-4.8); Lymphocytes % 26.3 %; Mean Corpuscular HGB Conc 33.8 g/dL (30.0-36.0); Mean Platelet Volume 10.4 fL (7.4-10.4); Monocytes # 0.4 10^3/uL (0.2-0.9); Monocytes % 5.7 %; Neutrophils % 63.9 %; Nucleated Red Blood Cells % 0 %; Platelet Count 211 10^3/cmm (130-400); Red Blood Count 4.53 10^6/uL (4.1-5.3); Red Cell Distribution Width 12.4 % (12.1-15.1); White Blood Count 7.2 10^3/uL (4.0-10.0)
[2020-07-27 05:34] LABS: Ferritin 293 ng/mL (15-150)
[2020-07-27 05:35] LABS: Alanine Aminotransferase 34 U/L (0-33); Albumin Level 3.8 g/dL (3.5-5.2); Alkaline Phosphatase 61 IU/L (35-105); Anion Gap 12.4 (5-19); Aspartate Amino Transferase 25 U/L (0-32); Blood Urea Nitrogen 16 mg/dL (6-20); Calcium 8.2 mg/dL (8.5-10.5); Carbon Dioxide 24 mmol/L (22-29); Chloride 105 mmol/L (98-107); Glomerular Filtration Rate 171.8 mL/min (90-130); Glucose 201 mg/dL (65-115); Osmolality Calculated 293 mOsm/kg (285-295); Potassium 3.4 mmol/L (3.5-5.1); Sodium 138 mmol/L (136-145); Total Bilirubin 0.4 mg/dL (0.15-1.2); Total Protein 6.8 g/dL (6.6-8.7)
[2020-07-27 05:50] LABS: D Dimer 0.86 ug/mIFEU (0-0.59)
[2020-07-27 08:03] LABS: Glucose Point of Care 152 mg/dL (70-110)
[2020-07-27] MEDS: potassium chloride ER 10 mEq Tablet 40 MEQ PO (08:07)
[2020-07-27] MEDS: benzonatate 100 mg Capsule 200 MG PO (08:07)
[2020-07-27] MEDS: lisinopril 20 mg Tablet PO (08:08)
[2020-07-27] MEDS: pantoprazole DR 40 mg Tablet PO (08:08)
[2020-07-27] MEDS: multivitamin therapeutic Tablet 1 TAB PO (08:08)
[2020-07-27] MEDS: ascorbic acid 500 mg Tablet PO (08:08)
[2020-07-27] MEDS: gabapentin 300 mg Capsule 600 MG PO (08:08)
[2020-07-27] MEDS: insulin glargine 100 units/1 mL 30 UNIT SUBCUT (08:11)
[2020-07-27] MEDS: sertraline 100 mg Tablet 200 MG PO (08:14)
[2020-07-27] MEDS: albuterol 8 gm MDI 1 PUFF INHALATION ×2 (08:29→11:22)
[2020-07-27] MEDS: dexamethasone 4 mg/mL INJ 6 MG IVP (09:05)
[2020-07-27] MEDS: enoxaparin 40 mg/0.4 mL Syringe SUBCUT (09:06)
[2020-07-27 11:38] LABS: Glucose Point of Care 257 mg/dL (70-110)
--- NOTE | 2020-07-27 11:49 | P.DS_ITS ---
Discharge Providers Date of Admission: 07/23/20 14:38 Date of Discharge: July 27, 2020 Attending Provider at Admission: Jairo Borrero MD Attending Provider at Discharge: Colin Gallegos MD Primary Care Provider: KARTIK Vance Diagnoses at Discharge Discharge Diagnosis (1) Pneumonia due to COVID-19 virus: Status: Acute Problem details: Significantly improved. Off oxygen. Received 5 days of dexamethasone, and remdesivir (2) Type 2 diabetes mellitus: Status: Chronic Qualifiers: Diabetes mellitus continuous churn buttermaker insulin use: with prison use Diabetes mellitus complication status: with hyperglycemia Qualified Code(s): E11.65 - Type 2 diabetes mellitus with hyperglycemia; Z79.4 - residential (current) use of insulin (3) Hypertension: Status: Acute (4) Hyperlipemia: Status: Acute (5) Allergic rhinitis: Status: Acute Reason for Visit Reason for Visit: COVID POSITIVE WITH WORSE SOB Hospital Course Hospital Course: Yara presented to the hospital, on July 23 with history of fever, cough. had COVID. Chest x-ray demonstrated viral pneumonia. She was placed on remdesivir, dexamethasone, oxygen, DVT prophylaxis and other supportive care. At most she required 3 L of oxygen per nasal cannula. She did not require high flow. No fever was noted during hospital stay. Over time, oxygen was weaned off. By July 27 she was off oxygen, feeling better and ready for discharge home. She did not need her oxygen on a home oxygen evaluation. She will follow quarantine guidelines on discharge. She will follow-up with her primary care provider by telehealth. Physical Exam Narrative: EXAM NARRATIVE: General exam is no apparent distress Cardiovascular regular rate and rhythm Lungs clear Abdomen is soft with positive bowel sounds Extremities no cyanosis clubbing or edema Discharge Data Data Completed and Pending: Completed Studies During Hospitalization Category Date Time Status XR chest 1V soto ble [id number] Stat Exams 07/23/20 11:51 Completed Pending at discharge Category Date Time Status Blood Culture Rou valencia Lab 07/23/20 18:00 Results Blood Culture Sta t Lab 07/23/20 12:00 Results Labs from last 24 hours 07/27/20 07/27/20 07/27/20 11:31 07:39 04:10 WBC RBC Hgb Hct MCV MCH MCHC RDW Plt Count MPV Neut % (Auto) Lymph % (Auto) [place] % (Auto) Eos % (Auto) Baso % (Auto) Neut # (Auto) Lymph # (Auto) [place] # (Auto) Eos # (Auto) Baso # (Auto) Nucleated RBC % (a uto) Nucleated RBCs # D-Dimer Sodium Potassium Chloride Carbon Dioxide Anion Gap BUN Creatinine GFR Calculation Glucose POC Glucose 257 152 Calculated Osmolal ity Calcium Ferritin 293 H Total Bilirubin AST ALT Alkaline Phosphata se C-Reactive Protein Total Protein Albumin Globulin 07/27/20 07/27/20 07/27/20 04:10 04:10 04:10 WBC 7.2 RBC 4.53 Hgb 12.7 Hct 37.6 MCV 83.0 MCH 28.0 MCHC 33.8 RDW 12.4 Plt Count 211 MPV 10.4 Neut % (Auto) 63.9 Lymph % (Auto) 26.3 [place] % (Auto) 5.7 Eos % (Auto) 0.0 Baso % (Auto) 0.1 Neut # (Auto) 4.60 Lymph # (Auto) 1.9 [place] # (Auto) 0.4 Eos # (Auto) 0.0 Baso # (Auto) 0.0 Nucleated RBC % (a uto) 0 Nucleated RBCs # 0.0 D-Dimer 0.86 H Sodium 138 Potassium 3.4 L Chloride 105 Carbon Dioxide 24 Anion Gap 12.4 BUN 16 Creatinine 0.4 L GFR Calculation 171.8 H Glucose 201 H POC Glucose Calculated Osmolal ity 293 Calcium 8.2 L Ferritin Total Bilirubin 0.4 AST 25 ALT 34 H Alkaline Phosphata se 61 C-Reactive Protein 6.0 H Total Protein 6.8 Albumin 3.8 Globulin 3.0 07/26/20 07/26/20 20:29 16:37 WBC RBC Hgb Hct MCV MCH MCHC RDW Plt Count MPV Neut % (Auto) Lymph % (Auto) [place] % (Auto) Eos % (Auto) Baso % (Auto) Neut # (Auto) Lymph # (Auto) [place] # (Auto) Eos # (Auto) Baso # (Auto) Nucleated RBC % (a uto) Nucleated RBCs # D-Dimer Sodium Potassium Chloride Carbon Dioxide Anion Gap BUN Creatinine GFR Calculation Glucose POC Glucose 368 366 Calculated Osmolal ity Calcium Ferritin Total Bilirubin AST ALT Alkaline Phosphata se C-Reactive Protein Total Protein Albumin Globulin Vitals: Last Vital Signs Temp 98.1 F 07/27/20 11:45 Pulse 65 07/27/20 11:45 Resp 17 07/27/20 11:45 BP 153/74 07/27/20 11:45 Pulse Ox 94 07/27/20 11:45 Discharge Plan Discharge Patient Disposition: Home Condition: Stable Prescriptions: Continued triamcinolone acetonide 0.1 % cream 1 applic TOPICAL BID Qty: 80 RF: 1 ascorbate calcium (vitamin C) 500 mg tablet 500 mg PO BID RF: 0 cranberry extract 250 mg capsule 250 mg PO BID RF: 0 multivitamin with minerals [Hair,Skin and Nails] Tablet 1 tab PO BID RF: 0 sertraline 100 mg tablet 200 mg PO DAILY Qty: 60 RF: 2 lisinopril 10 mg tablet See Rx Instructions .ROUTE .COMPLEX Qty: 30 RF: 2 gabapentin 300 mg capsule See Rx Instructions .ROUTE .COMPLEX Qty: 120 RF: 2 [place] 5 mcg/dose (250 mcg/mL) 1.2 mL pen injector See Rx Instructions .ROUTE .COMPLEX Qty: 1.2 RF: 2 Lantus Solostar U-100 Insulin 100 unit/mL (3 mL) insulin pen See Rx Instructions .ROUTE .COMPLEX Qty: 45 RF: 2 (DME) pen needle, diabetic [Comfort EZ Pen [place]] 31 gauge x 1/4 needle See Rx Instructions .ROUTE .MEDSUPPLY Qty: 100 RF: 12 albuterol sulfate [ProAir HFA] 90 mcg/actuation HFA aerosol inhaler 2 puff INHALATION Q6H PRN (Reason: shortness of breath or wheezing) Qty: 18 RF: 2 pravastatin 80 mg tablet 80 mg PO DAILY Qty: 30 RF: 2 glipizide 5 mg tablet 5 mg PO BID Qty: 60 RF: 2 montelukast 10 mg tablet See Rx Instructions .ROUTE .COMPLEX Qty: 30 RF: 0 omeprazole 20 mg capsule,delayed release(DR/EC) See Rx Instructions .ROUTE .COMPLEX Qty: 30 RF: 0 metformin 500 mg tablet extended release 24 hr 500 mg PO BID RF: 0 Discharge Orders: Discharge Order (Routine); Ordered 07/27/20 Ordered By: Colin Gallegos Referrals: Paulina Mayer, KARTIK [Primary Care Provider] - 4-7 days Discharge Diet: Diabetic Discharge Activity: Increase activity as tolerated Activity Restrictions/Additional Instructions: Return for any worsening. Follow-up with your primary care provider by telehealth next week You had moderate COVID illness. You should quarantine from 10 days from onset of symptoms, and be fever free for 24 hours and cough and shortness of breath symptoms have improved. Discharge Attestations Time Spent in Discharge Care*: greater than 30 min Quality Metrics Clinical Quality Measures During this hospital stay, did patient experience: None Coding Level of Care Code Acute Retail Specialist for [facility] Fwd Diagnoses Pneumonia due to COVID-19 virus U07.1; J12.89 Type 2 diabetes mellitus E11.65; Z79.4 Diabetes mellitus continuous churn buttermaker insulin use: with continuous churn buttermaker use Diabetes mellitus complication status: with hyperglycemia Hypertension I10 Hyperlipemia E78.5 Allergic rhinitis J30.9
--- NOTE | 2020-08-03 10:35 | PC.SOCIAL ---
Spoke with the Chayo Robert on the phone [phone]. She stated that she was doing well at home. She has already followed up with her PCP Paulina Mayer from [place]. She stated that she seen her in person. Mrs. 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 We discussed ways the COVID 19 is spread and ways to prevent the spread. She stated that she was taking all precautions including covering her mouth when coughing and sneezing when not wearing a mask. She stated that she was trying hard not to touch her face. She has been washing her hands as much as possible with a good lather lasting longer than 20 seconds. She also stated that she is utilizing social distancing as well and will continue to utilize this even at work when she returns. At this time she is doing ass she can to stay at home and restricting visitors. She is a little concerned for her daughter who is 17 yrs old and . While on the phone this financial underwriter went over the symptoms to monitor and to report to her PCP or to the ER if they get sever. These symptoms were: trouble breathing, shortness of breath, chest pain or pressure in chest lasting longer than 5 minutes, confusion, trouble waking up, lips or face becoming blue, if she has a fever of 104 or higher. At the end of the conversation this financial underwriter brought up plasma donation, the patient was very interested in learning more as her had once donated plasma for patients who had [employer]. The information was mailed to the patient.
== END 2020-07-27 12:50 | disposition home or self-care (01) | DRG 177 ==
LOC: ER 12:33 → ICU 15:00
PROVIDERS: Emergency Medicine; Admitting Provider Internal Medicine; PCP Nurse Practitioner Family; Visit Provider Internal Medicine
DX: U07.1 COVID-19 (principal); J12.89 Other viral pneumonia; E11.65 Type 2 diabetes mellitus with hyperglycemia; I10 Essential (primary) hypertension; E78.5 Hyperlipidemia, unspecified; J30.9 Allergic rhinitis, unspecified; Z79.84 Long term (current) use of oral hypoglycemic drugs; F41.9 Anxiety disorder, unspecified; E11.40 Type 2 diabetes mellitus with diabetic neuropathy, unspecified
CPT/HCPCS: 12345; 36415; 36416; 71045; 80053; 82728; 82962; 83036; 83605; 83735; 83880; 84145; 84703; 85025; 85378; 85384; 85610; 86140; 87040; 87205; 87804; 94640; 96372; 96375; 99283; J1100; J1650; J1815 ×2; J3535

== ENCOUNTER → 2020-08-01 16:47 | Outpatient (BNVA) | payer SELFPAY | PROVIDERS: PCP Nurse Practitioner Family; Visit Provider Nurse Practitioner Family | DX: R19.5 Other fecal abnormalities (principal); I10 Essential (primary) hypertension | CPT/HCPCS: 80053; 85025 ==

== ENCOUNTER → 2021-05-01 09:50 | Outpatient (BNVA) | payer SELFPAY | PROVIDERS: PCP Nurse Practitioner Family; Visit Provider Dermatology | DX: Z01.89 Encounter for other specified special examinations (principal) ==

== ENCOUNTER → 2021-05-15 16:51 | Outpatient (BNVA) | payer SELFPAY | PROVIDERS: PCP Nurse Practitioner Family; Visit Provider Nurse Practitioner Family | DX: E11.65 Type 2 diabetes mellitus with hyperglycemia (principal); L65.9 Nonscarring hair loss, unspecified; E78.5 Hyperlipidemia, unspecified; G62.9 Polyneuropathy, unspecified; I10 Essential (primary) hypertension; J30.9 Allergic rhinitis, unspecified; F41.9 Anxiety disorder, unspecified; F32.9 Major depressive disorder, single episode, unspecified; M54.41 Lumbago with sciatica, right side; M54.42 Lumbago with sciatica, left side; G89.29 Other chronic pain; R00.0 Tachycardia, unspecified; L20.9 Atopic dermatitis, unspecified; Z79.4 Long term (current) use of insulin | CPT/HCPCS: 82607; 84443 ==

== ENCOUNTER → 2021-10-23 08:24 | Outpatient (BNVA) | payer SELFPAY | PROVIDERS: PCP Nurse Practitioner Family; Visit Provider Dermatology | DX: Z01.89 Encounter for other specified special examinations (principal) ==

== ENCOUNTER → 2021-11-12 13:27 | Outpatient (BNVA) | payer MEDICAID, SELFPAY | PROVIDERS: PCP Nurse Practitioner Family; Visit Provider Nurse Practitioner Family | DX: R39.9 Unspecified symptoms and signs involving the genitourinary system (principal); R82.90 Unspecified abnormal findings in urine | CPT/HCPCS: 81000; 87077; 87086; 87184 ==

== ENCOUNTER → 2021-12-21 11:10 | Outpatient (BNVA) | payer OTHER, MEDICAID, SELFPAY | PROVIDERS: PCP Nurse Practitioner Family; Visit Provider Nurse Practitioner Family | DX: N39.0 Urinary tract infection, site not specified (principal); M25.511 Pain in right shoulder; M75.31 Calcific tendinitis of right shoulder | CPT/HCPCS: 73030; 81003; 87077; 87086; 87184 ==

== ENCOUNTER → 2022-01-07 10:37 | Outpatient (BNVA) | payer OTHER, SELFPAY | PROVIDERS: PCP Nurse Practitioner Family; Visit Provider Nurse Practitioner Family | DX: N39.0 Urinary tract infection, site not specified (principal) | CPT/HCPCS: 81003 ==

== ENCOUNTER → 2022-03-01 10:37 | Outpatient (BNVA) | payer OTHER, SELFPAY | PROVIDERS: PCP Nurse Practitioner Family; Visit Provider Nurse Practitioner Family | DX: N39.0 Urinary tract infection, site not specified (principal) | CPT/HCPCS: 81003 ==

== ENCOUNTER → 2022-07-30 14:56 | Outpatient (BNVA) | payer OTHER, MEDICAID, SELFPAY | PROVIDERS: PCP Nurse Practitioner Family; Visit Provider Urology | DX: N30.20 Other chronic cystitis without hematuria (principal); B37.3 Candidiasis of vulva and vagina | CPT/HCPCS: 87077; 87086; 87186 ==

== ENCOUNTER → 2022-08-05 09:06 | Outpatient (BNVA) | payer OTHER, SELFPAY | PROVIDERS: PCP Nurse Practitioner Family; Visit Provider Urology | DX: N30.20 Other chronic cystitis without hematuria (principal); B37.3 Candidiasis of vulva and vagina | CPT/HCPCS: 81003 ==

== ENCOUNTER → 2022-08-27 09:35 | Outpatient (BNVA) | payer MEDICAID, SELFPAY | PROVIDERS: PCP Nurse Practitioner Family; Visit Provider Nurse Practitioner Family | DX: L65.9 Nonscarring hair loss, unspecified (principal); Z12.39 Encounter for other screening for malignant neoplasm of breast; E11.65 Type 2 diabetes mellitus with hyperglycemia; Z79.4 Long term (current) use of insulin; G62.9 Polyneuropathy, unspecified; I10 Essential (primary) hypertension; F41.9 Anxiety disorder, unspecified; F32.9 Major depressive disorder, single episode, unspecified; R00.0 Tachycardia, unspecified; G43.909 Migraine, unspecified, not intractable, without status migrainosus; E78.5 Hyperlipidemia, unspecified; M54.41 Lumbago with sciatica, right side; M54.42 Lumbago with sciatica, left side; G89.29 Other chronic pain; Z68.41 Body mass index [BMI] 40.0-44.9, adult | CPT/HCPCS: 80053; 80061; 82043; 82607; 83036; 83735; 84443; 85025 ==

== ENCOUNTER → 2022-10-09 14:50 | Outpatient (BNVA) | payer MEDICAID, SELFPAY | PROVIDERS: PCP Nurse Practitioner Family; Visit Provider Nurse Practitioner Family | DX: R05.9 Cough, unspecified (principal); J06.9 Acute upper respiratory infection, unspecified; H65.90 Unspecified nonsuppurative otitis media, unspecified ear | CPT/HCPCS: 87400; 87426 ==

== ENCOUNTER → 2023-01-10 14:18 | Outpatient (BNVA) | payer BC, MEDICAID, SELFPAY | PROVIDERS: PCP Nurse Practitioner Family; Visit Provider Nurse Practitioner Family | DX: R05.9 Cough, unspecified (principal); J98.8 Other specified respiratory disorders | CPT/HCPCS: 87426 ==

== ENCOUNTER → 2023-01-24 08:11 | Outpatient (BNVA) | payer BC, MEDICAID, SELFPAY | PROVIDERS: PCP Nurse Practitioner Family; Visit Provider Nurse Practitioner Family | DX: E11.65 Type 2 diabetes mellitus with hyperglycemia (principal); Z79.4 Long term (current) use of insulin | CPT/HCPCS: 80053; 80061; 83036; 85025 ==

== ENCOUNTER 2023-02-14 09:03 | Outpatient (CLI) | payer BC, MEDICAID, SELFPAY ==
--- NOTE | 2023-02-14 09:21 | MM_ITS ---
WS: [id number] BILATERAL SCREENING DIGITAL TOMOSYNTHESIS MAMMOGRAM WITH CAD HISTORY: Screening. COMPARISON: None available. Bilateral CC and MLO views with tomosynthesis and synthetic mammography submitted. Computer aided det ection analyzed. Breast composition: There are scattered areas of fibroglandular density. No suspicious masses, microc alcifications or architectural distortion. Benign calcifications in the anterior RIGHT breast. MM/[place] [id number] IMPRESSION: BI-RADS: 2-Benign FOLLOW UP: 1 Year Follow-up
== END 2023-02-14 09:04 | disposition home or self-care (01) ==
LOC: RAD 09:09
PROVIDERS: PCP Nurse Practitioner Family; Visit Provider Nurse Practitioner Family
DX: Z12.31 Encounter for screening mammogram for malignant neoplasm of breast (principal)
CPT/HCPCS: 77063; 77067

== ENCOUNTER 2023-02-20 15:58 | Outpatient (CLI) | payer BC, MEDICAID, SELFPAY ==
--- NOTE | 2023-02-20 16:30 | CT_ITS ---
WS: [id number] CT ABDOMEN AND PELVIS WITH CONTRAST HISTORY: R10.9 - Unspecified abdominal pain, RIGHT upper quadrant pain for 3 weeks. TECHNIQUE: Imaging performed of the abdomen and pelvis with IV contrast. Single phase imaging of the abdomen. Coronal and sagittal reformats are submitted. All CT scans at [facility] use at tse[address] st one of these dose optimization techniques: automated exposure control; mA and/or kV adjustment per patient size (includes targeted exams where dose is matched to clinical indication); or iterative re construction. IV CONTRAST: Omnipaque 350; 100 mL IV. Oral contrast: Yes. DLP: 1134.13 mGy.cm COMPARISON: None available. Lower thorax: Benign granuloma LEFT lung base. Heart is normal size. No hiatal hernia. Liver/biliary system: Normal size with no intrahepatic dilatation. Gallbladder: Status post cholecystectomy. Pancreas: Normal size pancreas and pancreatic duct. No adjacent inflammation. Spleen: Normal size spleen with several granulomata. Adrenal glands: Normal. Right kidney: Normal. Left kidney: Normal size kidney. Too small to characterize hypodensity in the mid kidney. Aorta: Normal. Lymphadenopathy: None. Free fluid: None. GI tract: Normal stomach. No small bowel obstruction. Normal appendix. No significant diverticular di sease. Abdominal wall: Fat containing umbilical hernia. Pelvis: No free fluid or adenopathy within the pelvis. Hysterectomy. Bones: Increase in lumbar lordosis. CT/CT abdomen pelvis w con* [id number] IMPRESSION: 1. No acute abdominal or pelvic abnormalities are identified. 2. Normal appendix. 3. Prior cholecystectomy and hysterectomy. 4. No ascites or adenopathy.
[2023-02-20] MEDS: iohexol 350 mg/mL 500 mL Btl (per mL) IV (16:59)
[2023-02-20] MEDS: iohexol 350 mg/mL 500 mL Btl (per mL) PO (16:59)
== END 2023-02-20 15:59 | disposition home or self-care (01) ==
LOC: RAD 16:03
PROVIDERS: PCP Nurse Practitioner Family; Visit Provider Nurse Practitioner Family
DX: R10.11 Right upper quadrant pain (principal); Z90.49 Acquired absence of other specified parts of digestive tract; Z90.710 Acquired absence of both cervix and uterus
CPT/HCPCS: 74177; 82150; 83690; 84443; Q9967

== ENCOUNTER → 2023-05-05 08:11 | Outpatient (BNVA) | payer MEDICAID, SELFPAY | PROVIDERS: PCP Nurse Practitioner Family; Visit Provider Nurse Practitioner Family | DX: E11.65 Type 2 diabetes mellitus with hyperglycemia (principal); Z79.4 Long term (current) use of insulin; Z78.0 Asymptomatic menopausal state; G62.9 Polyneuropathy, unspecified | CPT/HCPCS: 80053; 80061; 82607; 82670; 83036; 83735; 84144; 84403; 84439; 84443; 85025 ==

== ENCOUNTER → 2023-06-04 13:13 | Outpatient (BNVA) | payer MEDICAID, SELFPAY | PROVIDERS: PCP Nurse Practitioner Family; Visit Provider Nurse Practitioner Family | DX: G89.29 Other chronic pain (principal); M54.41 Lumbago with sciatica, right side; M54.42 Lumbago with sciatica, left side | CPT/HCPCS: 72072; 72100 ==

== ENCOUNTER → 2023-06-18 10:06 | Outpatient (BNVA) | payer MEDICAID, SELFPAY | PROVIDERS: PCP Nurse Practitioner Family; Visit Provider Nurse Practitioner Family | DX: I10 Essential (primary) hypertension (principal); R94.8 Abnormal results of function studies of other organs and systems | CPT/HCPCS: 71046 ==

== ENCOUNTER → 2023-08-12 11:52 | Outpatient (BNVA) | payer MEDICAID, SELFPAY | PROVIDERS: PCP Nurse Practitioner Family; Visit Provider Nurse Practitioner Family | DX: M54.6 Pain in thoracic spine (principal); G89.29 Other chronic pain; E11.65 Type 2 diabetes mellitus with hyperglycemia; Z79.4 Long term (current) use of insulin; E55.9 Vitamin D deficiency, unspecified | CPT/HCPCS: 80053; 80061; 82306; 82607; 83036; 83735; 84443; 85025 ==

== ENCOUNTER 2023-09-11 11:14 | Outpatient (CLI) | payer MEDICAID, SELFPAY ==
--- NOTE | 2023-09-11 11:00 | MR_ITS ---
WS: [id number] MRI THORACIC SPINE noncontrast. HISTORY: M54.6 - Pain in thoracic spine COMPARISON: None available. TECHNIQUE: Multiplanar sequences are performed in sagittal and axial planes. Motion artifact on majority of the sequences. Moderate increase in thoracic kyphosis. Disc spaces are narrowed throughout the thoracic spine. No ac tatitlek fracture or marrow edema. Signal within the cord is normal. T1-2: Mild osteophytic ridging. Shallow RIGHT paracentral disc protrusion. No stenosis. T2-3: Normal. T3-4: Normal. T4-5: Normal. T5-6: Mild facet arthritis. No stenosis. T6-7: Normal. T7-8: Normal. T8-9: Mild disc bulging. No stenosis. T9-10: Normal. T10-11: Normal. T11-12: Diffuse annular disc bulging. Ligamentum flavum and facet arthritis. L1-L2: RIGHT paracentral broad-based disc protrusion with mild effacement of ventral CSF. No stenosis . Paravertebral soft tissues are negative. IMPRESSION: 1. Moderate increase in thoracic kyphosis. 2. No high-grade central or foraminal stenosis. 3. Mild diffuse disc space narrowing and desiccation. 4. Small RIGHT paracentral broad-based disc protrusion at L1-2.
== END 2023-09-11 11:15 | disposition home or self-care (01) ==
LOC: RAD 11:15
PROVIDERS: PCP Nurse Practitioner Family; Visit Provider Nurse Practitioner Family
DX: M40.204 Unspecified kyphosis, thoracic region (principal); G89.29 Other chronic pain; M51.84 Other intervertebral disc disorders, thoracic region; M51.26 Other intervertebral disc displacement, lumbar region
CPT/HCPCS: 72146

== ENCOUNTER 2023-11-04 12:00 | Outpatient (CLI) | payer MEDICAID, SELFPAY | END 2023-11-04 12:01 | disposition home or self-care (01) | LOC: SLEEP 11-05 12:27 | PROVIDERS: PCP Nurse Practitioner Family; Visit Provider Nurse Practitioner Family | DX: G47.33 Obstructive sleep apnea (adult) (pediatric) (principal); I10 Essential (primary) hypertension | CPT/HCPCS: G0399 ==

== ENCOUNTER → 2024-10-01 09:19 | Outpatient (BNVA) | payer MEDICAID, SELFPAY | PROVIDERS: PCP Nurse Practitioner Family | DX: R39.9 Unspecified symptoms and signs involving the genitourinary system (principal) | CPT/HCPCS: 81000 ==

== ENCOUNTER 2024-10-06 12:33 | Inpatient (IN) | payer BC, MEDICAID, SELFPAY ==
[2024-10-06] VITALS (31 sets, daily range): BP systolic 118–159; BP diastolic 62–100; PULSE 67–79; RESP 16–18; TEMP 36.3–36.7; O2SAT 95–98; BMI 38.0
--- NOTE | 2024-10-06 13:16 | XRR_ITS ---
PROCEDURE INFORMATION: Exam: XR Chest Exam date and time: 10/06/2024 1:32 PM Age: 48 years old Clinical indication: Pain; Angina pectoris; Additional info: Left chest pain TECHNIQUE: Imaging protocol: Radiologic exam of the chest. Views: 1 view. COMPARISON: CR XR chest 2V* [id number] 06/18/2023 10:04 AM FINDINGS: Lungs: Unremarkable. No consolidation or mass. Pleural spaces: Unremarkable. No pleural effusion. No pneumothorax. Heart/Mediastinum: Calcified lymph nodes are noted in the mediastinum and both gianna. Bones/joints: Unremarkable. XR/XR chest 1V portable [id number] IMPRESSION: No acute findings.
--- NOTE | 2024-10-06 13:16 | ECG_ITS ---
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 Measurements Intervals [place] Rate: 72 P: 17 SD: 167 QRS: -38 QRSD: 169 T: 99 QT: 484 QTc: 533 Interpretive Statements SINUS RHYTHM LEFT AXIS DEVIATION [QRS AXIS < -30] INTRAVENTRICULAR CONDUCTION DELAY [130+ ms QRS DURATION] No previous ECG available for comparison Electronically Signed On 10-06-2024 18:55:04 TECHNICIAN TRAINEE by Kelsea Price M.D. [email or web address]
--- NOTE | 2024-10-06 13:17 | ED_ITS ---
HPI - Abdominal Pain 2 General: Chief Complaint: Abdominal Pain Stated Complaint: upper abd pain, NV Time Seen by Provider: 10/06/24 13:05 Source: patient Mode of arrival: ambulatory Limitations: no limitations History of Present Illness: Patient is a 48-year-old female with past medical history of diabetes, hypertension, and hyperlipidemia who presents to the emergency department complaining of abdominal pain for the past week. On 10/01, she was seen at walk-in clinic and prescribed antibiotics for a UTI, she has since finished this and has also been taking Zofran for nausea. She thinks that her symptoms overall have been getting better, her urinary symptoms are gone, but she has still had some intermittent left upper quadrant and epigastric pain. Also to note she has been having intermittent left chest pain that radiates to her back and does cause her to be short of breath. She denies any cardiac history. History of cholecystectomy. She states she has still been intermittently nauseous, took Zofran prior to arrival. No diarrhea, constipation, history of kidney stones, urinary symptoms, fevers, chills, or other symptoms at this time. No specific relieving factors for her pain, but does state that it seems to get worse after eating and while lying flat. Denies history of pancreatitis or gastroparesis. MD elicited complaint: abdominal pain Pertinent past history: other (DM) Onset (ago): day(s) Pain Consistency: intermittent Location: Epigastric and LUQ Severity: moderate Exacerbating factors: eating and other (supine) Associated Symptoms: Reports nausea; Denies bloating, change in stool character, chills, constipation, diarrhea, dysuria, fever(s), hematochezia and vomiting Treatments prior to arrival: other (Zofran) Related Data Home Medications Medication Instructions Recorded Confirmed nitrofurantoin 100 mg PO BID 10/06/24 10/06/24 monohydrate/macrocrystals 100 mg capsule Previous Rx's Medication Instructions Recorded fluticasone propionate 50 1 spray intranasal BID #16 grams 01/03/23 mcg/actuation nasal spray,suspension (Flonase Allergy Relief) omeprazole 20 mg capsule,delayed See Rx Instructions .Route 01/28/23 release .COMPLEX #60 caps pen needle, diabetic 33 gauge x #100 ea 01/28/23 5/16 (Comfort EZ Pen [place]) blood-glucose meter,continuous #1 ea 02/14/23 (Dexcom G6 Capacitor Repairer) blood-glucose transmitter (Dexcom #1 ea 02/16/23 G6 Transmitter device) montelukast 10 mg tablet See Rx Instructions .Route 03/14/23 .COMPLEX #30 tabs glipizide 5 mg tablet See Rx Instructions .Route 03/27/23 .COMPLEX #60 tabs sumatriptan succinate 100 mg tablet See Rx Instructions .Route 06/02/23 .COMPLEX #10 tabs blood-glucose sensor (Dexcom G6 #3 ea 09/19/23 Sensor device) albuterol sulfate 90 mcg/actuation See Rx Instructions .Route 10/10/23 aerosol inhaler (ProAir HFA) .COMPLEX #8.5 grams Autot titrating CPAP 6-16cm and #1 ea 11/21/23 supplies metoprolol tartrate 50 mg tablet See Rx Instructions .Route 11/21/23 .COMPLEX #60 tabs sertraline 100 mg tablet See Rx Instructions .Route 11/21/23 .COMPLEX #45 tabs cyclobenzaprine 10 mg tablet See Rx Instructions .Route 12/05/23 .COMPLEX #30 tabs diclofenac sodium 75 mg See Rx Instructions .Route 12/05/23 tablet,delayed release .COMPLEX #60 tabs gabapentin 300 mg capsule See Rx Instructions .Route 12/05/23 .COMPLEX #180 caps metformin 500 mg tablet,extended See Rx Instructions .Route 12/05/23 release 24 hr .COMPLEX #120 tabs insulin aspart U-100 100 unit/mL See Rx Instructions .Route 01/23/24 (3 mL) subcutaneous pen (Novolog .COMPLEX #15 mL FlexPen U-100 Insulin aspart) insulin detemir U-100 100 unit/mL See Rx Instructions .Route 01/23/24 (3 mL) subcutaneous pen (Levemir .COMPLEX #45 mL FlexPen) hydroxyzine HCl 50 mg tablet See Rx Instructions .Route 02/04/24 .COMPLEX #60 tabs blood-glucose meter,continuous #1 ea 03/05/24 (FreeStyle Nita 3 [place]) blood-glucose sensor (FreeStyle #1 ea 03/05/24 Nita 3 Sensor device) finasteride 1 mg tablet See Rx Instructions .Route 04/12/24 .COMPLEX #30 tabs lisinopril 20 mg tablet See Rx Instructions .Route 06/28/24 .COMPLEX #14 tabs ondansetron 4 mg disintegrating 4 mg PO Q8H PRN nausea and 10/01/24 tablet vomiting #30 tabs Allergies Allergy/AdvReac Type Severity Reaction Status Date / Time Usednej-CTV-LuO Reductase Allergy body aches Verified 10/06/24 12:41 Inhibitor Review of Systems 2 General: Reports: 10 or more systems reviewed and unremarkable except in HPI and below Const: Denies: fever(s), chills, change in appetite, change in weight or diaphoresis ENMT: Denies: throat pain or hoarseness Card: Denies: chest pain, palpitations or lightheadedness Resp: Denies: dyspnea, productive cough or wheezing GI: Reports: abdominal pain and nausea; Denies: vomiting, diarrhea, constipation, bloating, change in stool character or hematochezia : Denies: flank pain, difficulty voiding, dysuria, urinary frequency or urinary urgency Musc: Denies: neck pain or back pain Skin/Breast: Denies: rash or new lesions Neuro: Denies: headache(s) or dizziness PFSH ED 2 PFSH: Medical History Migraine Chronic cystitis Anxiety Hypertension Neuropathy Hyperlipemia Surgical History Hx of foot surgery History of tubal ligation (~2002) History of laparoscopic-assisted vaginal hysterectomy BSO 2017 History of cholecystectomy 2009 Family History Mother , age 65 Diabetes Cancer Pancreatic Heart disease CAD (coronary artery disease) Father Arrhythmia Denies family history of Anesthesia complication Bleeding disorder Social History Smoking and tobacco/nicotine status: never used tobacco/nicotine Alcohol intake: never Substance/Drug Use: never Housing: House Marital status: Current occupational status: employed Current occupation: [employer] Do you think of yourself as: Straight/Heterosexual Physical Exam 2 Const: COMMON NORMALS: no acute distress, patient oriented x3, no limitations, healthy appearing, alert and well nourished GENERAL APPEARANCE: cooperative and comfortable NUTRITIONAL APPEARANCE: obese ORIENTATION/CONSCIOUSNESS: Y es awake HENMT: COMMON NORMALS: normocephalic, atraumatic, hearing grossly normal bilaterally, external ears normal, Normal external nose present, Normal nasal mucous membranes and turbinates present and moist oral mucous membranes HEAD & SCALP: normocephalic and atraumatic NOSE: Normal external nose present and Normal nasal mucous membranes and turbinates present EXTERNAL EAR: Yes external ears normal Eye: COMMON NORMALS: Equal, round and reactive pupils present, EOMs intact bilaterally, conjunctivae normal and normal visual fong by confrontation C ONJUNCTIVA: Yes conjunctivae normal PUPIL: Yes Equal, round and reactive pupils present Neck/C-Spine: COMMON NORMALS: full ROM, supple, no meningeal signs and no JVD Resp: COMMON NORMALS: normal respiratory effort, No retractions, No use of accessory muscles and clear to auscultation bilaterally AUSCULTATION: clear to auscultation bilaterally, no crackles, no rales, no rhonchi and no wheezes Cardio: COMMON NORMALS: no JVD, regular rate, regular rhythm, S1 normal heart sound present, S2 normal heart sound present, No gallops present (Cardio), No clicks present (Cardio), No murmurs present (Cardio), No rub (Cardio) and Peripheral pulses 2+ throughout RATE: regular rate RHYTHM: regular rhythm HEART SOUNDS: S1 normal heart sound present and S2 normal heart sound present PERIPHERAL PULSES: Peripheral pulses 2+ throughout GI: COMMON NORMALS: Normal to inspection, nondistended, normoactive bowel sounds present, Soft to palpation, No hepatosplenomegaly present and no masses INSPECTION: Yes central obesity AUSCULTATION: Yes normoactive bowel sounds PALPATION: Yes Soft to palpation, Yes Tenderness to palpation present (GI) (Epigastrium) Details: LUQ, No Guarding due to palpation present (GI), No Rigid due to palpation and Yes No hepatosplenomegaly present RECTAL EXAM: deferred : COMMON NORMALS: Yes no CVA tenderness BLADDER/KIDNEY EXAM: Yes no CVA tenderness Back/Pelvis: COMMON NORMALS: no CVA tenderness Extremity: COMMON NORMALS: normal to inspection and full ROM Neuro: COMMON NORMALS: patient oriented x3, moves all extremities, no focal motor deficits and no sensory deficits noted SENSORIUM/ORIENTATION: Yes alert MENINGEAL SIGNS: Yes no meningeal signs Psych: COMMON NORMALS: mental status grossly normal, cooperative and speech normal SPEECH: Yes normal speech Skin: COMMON NORMALS: no rashes or lesions noted GENERAL SKIN EXAM: no rashes or lesions noted Course 2 Vital Signs: Vital signs: Vital Signs Temperature 97.4 F L 10/06/24 12:37 Pulse Rate 74 10/06/24 14:53 Respiratory Rate 16 10/06/24 14:53 Blood Pressure 118/72 10/06/24 14:53 Pulse Oximetry 97 10/06/24 14:53 Oxygen Delivery Me thod Room Air 10/06/24 14:53 MDM - Abdominal Pain Medical Decision Making Patient presented with worsening abdominal pain despite recently being on Macrobid for UTI. Also reporting nausea. Vitals were stable here on arrival, afebrile and her vitals have remained stable throughout ED course. Physical exam only positive for some reproducible left upper quadrant and epigastric tenderness to palpation. With her reporting some left chest pain, shortness of breath, and back pain, I checked out her heart with troponin, EKG, and x-ray, all of which ultimately were unremarkable. Her EKG did show some intraventricular conduction delay though there were no prior EKG tracings to compare this to. Urinalysis was grossly infected, and CT did confirm an acute pyelonephritis and with failing outpatient therapy I spoke to hospitalist who agreed to admit the patient for IV antibiotics and control of her blood glucose. Her blood glucose here was 522, she is diabetic and does take glipizide, insulin, and metformin and does not report any noncompliance with taking her meds. She does report that she does not know what her last A1c was and has been without Dexcom for a while since not having insurance. After receiving 10 units of insulin and fluids, her blood glucose recheck shortly after and was down to 450. In addition her serum ketones were negative. Lipase mildly elevated 84, she does have a history of cholecystectomy so no concern at this time for any stone. Other than signs of dehydration on CMP, rest of her labs unremarkable. Informed her of plan for admission, she agrees and all other questions and concerns addressed at this time. Currently pending blood cultures and she is given IV ceftriaxone. Dr. Christian putting in admit orders at this time. Lab Data 10/06/24 13:20 10/06/24 13:20 Labs/Radiology: Radiology Impressions Chest X-Ray 10/06/24 13:16 IMPRESSION: No acute findings. Abdomen/Pelvis CT 10/06/24 13:34 IMPRESSION: Acute left pyelonephritis without abscess Laboratory Results WBC 11.57 10^3/uL (3.29-11.43) H 10/06/24 13:20 RBC 5.11 10^6/uL (3.85-5.65) 10/06/24 13:20 Hgb 14.60 g/dL (11.27-16.99) 10/06/24 13:20 Hct 41.8 % (36-47) 10/06/24 13:20 MCV 81.8 fl (85-98) L 10/06/24 13:20 MCH 28.6 pg (27-33) 10/06/24 13:20 MCHC 34.9 g/dL (30-55) 10/06/24 13:20 RDW 11.9 % (12.1-15.1) L 10/06/24 13:20 Plt Count 395 10^3/cmm (157-399) 10/06/24 13:20 MPV 9.5 fL (7.4-10.4) 10/06/24 13:20 Neut % (Auto) 67.0 % 10/06/24 13:20 Lymph % (Auto) 22.5 % 10/06/24 13:20 [place] % (Auto) 7.8 % 10/06/24 13:20 Eos % (Auto) 0.0 % 10/06/24 13:20 Baso % (Auto) 0.6 % 10/06/24 13:20 Neut # (Auto) 7.76 10^3/uL (1.8-7.7) H 10/06/24 13:20 Lymph # (Auto) 2.6 10^3/uL (0.8-4.8) 10/06/24 13:20 [place] # (Auto) 0.9 10^3/uL (0.2-0.9) 10/06/24 13:20 Eos # (Auto) 0.0 10^3/uL (0.0-0.8) 10/06/24 13:20 Baso # (Auto) 0.1 10^3/uL (0.0-0.1) 10/06/24 13:20 Nucleated RBC % (auto) 0 % 10/06/24 13:20 Nucleated RBCs # 0.0 /100WBC 10/06/24 13:20 Sodium 130 mmol/L (136-145) L 10/06/24 13:20 Potassium 4.0 mmol/L (3.5-5.1) 10/06/24 13:20 Chloride 92 mmol/L (98-107) L 10/06/24 13:20 Carbon Dioxide 22 mmol/L (22-29) 10/06/24 13:20 Anion Gap 20.0 (5-19) H 10/06/24 13:20 BUN 13 mg/dL (6-20) 10/06/24 13:20 Creatinine 0.7 mg/dL (0.5-0.9) 10/06/24 13:20 GFR Calculation 88.6 mL/min (90-130) L 10/06/24 13:20 Glucose 522 mg/dL (65-115) H* 10/06/24 13:20 POC Glucose 450 mg/dL (70-110) H 10/06/24 14:44 Calculated Osmolality 294 mOsm/kg (285-295) 10/06/24 13:20 Calcium 8.7 mg/dL (8.5-10.5) 10/06/24 13:20 Total Bilirubin 0.6 mg/dL (0.15-1.2) 10/06/24 13:20 AST 11 U/L (0-32) 10/06/24 13:20 ALT 12 U/L (0-33) 10/06/24 13:20 Alkaline Phosphatase 121 U/L (35-105) H 10/06/24 13:20 Troponin T Baseline < 6 ng/L (0-10) 10/06/24 13:20 Total Protein 6.8 g/dL (6.6-8.7) 10/06/24 13:20 Albumin 3.9 g/dL (3.5-5.2) 10/06/24 13:20 Globulin 2.9 g/dL (1.3-4.6) 10/06/24 13:20 Lipase 84 U/L (13-60) H 10/06/24 13:20 Urine Color Yellow (Yellow) 10/06/24 13:15 Urine Appearance Clear (CLEAR) 10/06/24 13:15 Urine pH 5.5 (5-7) 10/06/24 13:15 Ur Specific [place] 1.035 (1.005-1.030) H 10/06/24 13:15 Urine Protein Negative (Negative) 10/06/24 13:15 Urine Glucose (UA) 3+ (Normal) H 10/06/24 13:15 Urine Ketones 1+ (Negative) H 10/06/24 13:15 Urine Blood Negative (Negative) 10/06/24 13:15 Urine Nitrate Negative (Negative) 10/06/24 13:15 Urine Bilirubin Negative (Negative) 10/06/24 13:15 Urine Urobilinogen 1.0 mg/dL (Negative) 10/06/24 13:15 Ur Leukocyte Esterase 1+ (Negative) A 10/06/24 13:15 Urine RBC 3-5 /hpf (0-2) 10/06/24 13:15 Urine WBC 51-100 /hpf (0-5) H 10/06/24 13:15 Ur Squamous Epith Cells 0-5 /hpf (0-5) 10/06/24 13:15 Amorphous Sediment Not Reportable 10/06/24 13:15 Urine Bacteria None seen /hpf (NONE) 10/06/24 13:15 Hyaline Casts 2.05 /lpf 10/06/24 13:15 Serum Ketones Negative (Negative) 10/06/24 13:20 All radiology interpretation(s) finalized by discharge EKG Data EKG 1: I personally reviewed and interpreted this EKG as follows: EKG interpretation date: 10/06/24 EKG interpretation time: 13:30 Prior EKG tracings: not available for review Interpretation: EKG reviewed by me. Normal sinus rhythm. Rate 72. Intraventricular conduction delay, QRS of 169. No STEMI. Discharge Plan Discharge Patient Disposition: Placed in Observation Clinical Impression: Acute pyelonephritis, Acute hyperglycemia Coding Level of Care Code ED Build Automation Engineer for Scarlet Aguayo
[2024-10-06 13:31] LABS: Basophils # 0.1 10^3/uL (0.0-0.1); Basophils % 0.6 %; Hematocrit 41.8 % (36-47); Lymphocytes # 2.6 10^3/uL (0.8-4.8); Lymphocytes % 22.5 %; Mean Corpuscular HGB Conc 34.9 g/dL (30-55); Mean Corpuscular Hemoglobin 28.6 pg (27-33); Mean Corpuscular Volume 81.8 fl (85-98); Mean Platelet Volume 9.5 fL (7.4-10.4); Monocytes # 0.9 10^3/uL (0.2-0.9); Monocytes % 7.8 %; Neutrophils # 7.76 10^3/uL (1.8-7.7); Nucleated Red Blood Cells % 0 %; Platelet Count 395 10^3/cmm (157-399); Red Blood Count 5.11 10^6/uL (3.85-5.65); Red Cell Distribution Width 11.9 % (12.1-15.1); White Blood Count 11.57 10^3/uL (3.29-11.43)
--- NOTE | 2024-10-06 13:34 | CTR_ITS ---
PROCEDURE INFORMATION: Exam: CT Abdomen And Pelvis With Contrast Exam date and time: 10/06/2024 2:22 PM Age: 48 years old Clinical indication: Pain; Other: Epigastric; Additional info: Epigastric pain TECHNIQUE: Imaging protocol: Computed tomography of the abdomen and pelvis with contrast. Radiation optimization: All CT scans at this facility use at least one of these dose optimization techniques: automated exposure control; mA and/or kV adjustment per patient size (includes targeted exams where dose is matched to clinical indication); or iterative reconstruction. Contrast material: OMNI 350; Contrast volume: 100 ml; Contrast route: INTRAVENOUS (IV); COMPARISON: CT abdomen pelvis w con* [id number] 02/20/2023 4:57 PM RADIATION DOSE METRICS: Total DLP (mGy-cm): 1107.44 FINDINGS: Lungs: Lung bases are clear. No pleural effusion. Liver: Normal. No mass. Gallbladder and biliary ducts: The gallbladder has been resected. Pancreas: Normal. No ductal dilation. Spleen: Normal. No splenomegaly. Adrenal glands: Normal. No mass. Kidneys and ureters: The left kidney is mildly enlarged and demonstrates patchy areas of low density within the renal parenchyma. Stomach and bowel: Unremarkable. No obstruction. No mucosal thickening. Appendix: No evidence of appendicitis. Intraperitoneal space: Unremarkable. No free air. No significant fluid collection. Vasculature: Unremarkable. No abdominal aortic aneurysm. Lymph nodes: Unremarkable. No enlarged lymph nodes. Urinary bladder: Unremarkable as visualized. Reproductive: Unremarkable as visualized. Bones/joints: Unremarkable. No acute fracture. Soft tissues: Unremarkable. CT/CT abdomen pelvis w con* [id number] IMPRESSION: Acute left pyelonephritis without abscess
[2024-10-06 13:49] LABS: Bilirubin Urine Negative (Negative); Blood Urine Negative (Negative); Glucose Urine UA 3+ (Normal); Ketones Urine 1+ (Negative); Leukocyte Esterase Urine 1+ (Negative); Nitrate Urine Negative (Negative); Protein Urine Negative (Negative); Urine Appearance Clear (CLEAR); Urine Color Yellow (Yellow); pH Urine 5.5 (5-7)
[2024-10-06 13:54] LABS: Add Urine Microscopic? YES; Bacteria Urine None Seen /hpf; Hyaline Casts Urine 2.05 /lpf; Squamous Epithelial Cell Urine 0-5 /hpf (0-5); WBC Urine 51-100 /hpf (0-5)
[2024-10-06 13:56] LABS: Troponin(5th) Baseline < 6 ng/L (0-10)
[2024-10-06 13:58] LABS: Alanine Aminotransferase 12 U/L (0-33); Albumin Level 3.9 g/dL (3.5-5.2); Alkaline Phosphatase 121 U/L (35-105); Aspartate Amino Transferase 11 U/L (0-32); Blood Urea Nitrogen 13 mg/dL (6-20); Calcium 8.7 mg/dL (8.5-10.5); Carbon Dioxide 22 mmol/L (22-29); Chloride 92 mmol/L (98-107); Creatinine Clr Calc Pharmacy 127.0434; Globulin 2.9 g/dL (1.3-4.6); Glomerular Filtration Rate 88.6 mL/min (90-130); Lipase 84 U/L (13-60); Osmolality Calculated 294 mOsm/kg (285-295); Sodium 130 mmol/L (136-145); Total Bilirubin 0.6 mg/dL (0.15-1.2); Total Protein 6.8 g/dL (6.6-8.7)
[2024-10-06 14:01] LABS: Glucose 522 mg/dL (65-115)
[2024-10-06 14:17] LABS: Add Urine Culture? Yes; Specific Gravity, Urine 1.035 (1.005-1.030); UA Slide Review UA Slide Review Perf
[2024-10-06] MEDS: iohexol 350 mg/mL 500 mL Btl (per mL) IV (14:22)
[2024-10-06] MEDS: insulin regular-human 100 units/1 mL 10 UNIT IVP (14:37)
[2024-10-06] MEDS: sodium chloride 0.9% 1,000 ML 999 ML IV (14:45)
[2024-10-06] MEDS: cefTRIAXone 1,000 mg SDV 1000 MG IVP (14:45)
[2024-10-06 14:52] LABS: Ketone (Acetest) Serum Negative (Negative)
[2024-10-06 14:53] LABS: Glucose Point of Care 450 mg/dL (70-110)
--- NOTE | 2024-10-06 15:21 | PC.NURSE ---
PT BLOOD GLUCOSE 375 AT 1521
[2024-10-06 15:23] LABS: Glucose Point of Care 375 mg/dL (70-110)
--- NOTE | 2024-10-06 15:48 | ECG_ITS ---
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 Measurements Intervals [place] Rate: 73 P: 26 MD: 193 QRS: -36 QRSD: 163 T: 113 QT: 479 QTc: 531 Interpretive Statements SINUS RHYTHM LEFT AXIS DEVIATION [QRS AXIS < -30] INTRAVENTRICULAR CONDUCTION DELAY [130+ ms QRS DURATION] Compared to ECG 10/06/2024 13:29:10 No significant changes Electronically Signed On 10-06-2024 19:18:42 COLDFUSION by Kelsea Price M.D. [email or web address]
--- NOTE | 2024-10-06 16:52 | PM.HP ---
Providers/Chief Complaint Admitting Physician: Beth Draper MD Primary Care Provider: KARTIK Vance Chief Complaint: upper abd pain, NV History of Present Illness Yara Robert is a 48 year old female with past medical history of diabetes mellitus type 2, hypertension, migraine headaches, anxiety, hyperlipidemia presented with complaint of abdominal pain, nausea and vomiting since 2 days. As per the patient she started having pain/heaviness on the left side of her body and frequency of urination, hence went to urgent care clinic and was prescribed Macrobid for UTI. Since then she has been complaining of epigastric abdominal pain, crampy, associated with nausea and vomiting x 2 episodes, nonbilious nonbloody since 2 days. Denies any history of fever, back pain, flank pain, recent travel or diarrhea. She has history of recurrent UTI in the past, as per medical records she had E. coli UTI which is pansensitive. In ER she was found to have blood sugar of 522,450. She states she did take her Lantus 60 units this morning and has been compliant with her medications. Although blood sugars have not been well-controlled recently since she lost her insurance and has not been taking some of her diabetic medications. 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 In ER she was found to have WBC count of 11.5, sodium 130, anion gap 20, blood sugar of 522, lipase 84, UA showed urine glucose 3+, urine ketones 1+, leukocyte esterase 1+, WBCs 51-100 Chest x-ray negative for acute findings CT abdomen pelvis consistent with acute left pyelonephritis without abscess Review of Systems General: Reports: 10 or more systems reviewed and unremarkable except in HPI and below Medications/Allergies Home Medications Medication Instructions Recorded Confirmed Last Taken Type fluticasone propionate 50 1 spray intranasal BID #16 grams 01/03/23 10/06/24 Unknown Rx mcg/actuation nasal spray,suspension (Flonase Allergy Relief) omeprazole 20 mg capsule,delayed See Rx Instructions .Route 01/28/23 10/06/24 10/05/24 Rx release .COMPLEX #60 caps pen needle, diabetic 33 gauge x #100 ea 01/28/23 10/06/24 Unknown Rx 5/16 (Comfort EZ Pen [place]) blood-glucose meter,continuous #1 ea 02/14/23 10/06/24 Unknown Rx (Dexcom G6 Dimension Mill Worker) blood-glucose transmitter (Dexcom #1 ea 02/16/23 10/06/24 Unknown Rx G6 Transmitter device) montelukast 10 mg tablet See Rx Instructions .Route 03/14/23 10/06/24 10/05/24 Rx .COMPLEX #30 tabs glipizide 5 mg tablet See Rx Instructions .Route 03/27/23 10/06/24 Unknown Rx .COMPLEX #60 tabs sumatriptan succinate 100 mg tablet See Rx Instructions .Route 06/02/23 10/06/24 Unknown Rx .COMPLEX #10 tabs blood-glucose sensor (Dexcom G6 #3 ea 09/19/23 10/06/24 Unknown Rx Sensor device) albuterol sulfate 90 mcg/actuation See Rx Instructions .Route 10/10/23 10/06/24 Unknown Rx aerosol inhaler (ProAir HFA) .COMPLEX #8.5 grams Autot titrating CPAP 6-16cm and #1 ea 11/21/23 10/06/24 Unknown Rx supplies metoprolol tartrate 50 mg tablet See Rx Instructions .Route 11/21/23 10/06/24 Unknown Rx .COMPLEX #60 tabs sertraline 100 mg tablet See Rx Instructions .Route 11/21/23 10/06/24 Unknown Rx .COMPLEX #45 tabs cyclobenzaprine 10 mg tablet See Rx Instructions .Route 12/05/23 10/06/24 Unknown Rx .COMPLEX #30 tabs diclofenac sodium 75 mg See Rx Instructions .Route 12/05/23 10/06/24 10/05/24 Rx tablet,delayed release .COMPLEX #60 tabs gabapentin 300 mg capsule See Rx Instructions .Route 12/05/23 10/06/24 Unknown Rx .COMPLEX #180 caps metformin 500 mg tablet,extended See Rx Instructions .Route 12/05/23 10/06/24 10/05/24 Rx release 24 hr .COMPLEX #120 tabs insulin aspart U-100 100 unit/mL See Rx Instructions .Route 01/23/24 10/06/24 10/05/24 Rx (3 mL) subcutaneous pen (Novolog .COMPLEX #15 mL FlexPen U-100 Insulin aspart) insulin detemir U-100 100 unit/mL See Rx Instructions .Route 01/23/24 10/06/24 10/05/24 Rx (3 mL) subcutaneous pen (Levemir .COMPLEX #45 mL FlexPen) hydroxyzine HCl 50 mg tablet See Rx Instructions .Route 02/04/24 10/06/24 Unknown Rx .COMPLEX #60 tabs blood-glucose meter,continuous #1 ea 03/05/24 10/06/24 Unknown Rx (FreeStyle [place]ita 3 [place]) blood-glucose sensor (FreeStyle #1 ea 03/05/24 10/06/24 Unknown Rx Nita 3 Sensor device) finasteride 1 mg tablet See Rx Instructions .Route 04/12/24 10/06/24 Unknown Rx .COMPLEX #30 tabs lisinopril 20 mg tablet See Rx Instructions .Route 06/28/24 10/06/24 10/05/24 Rx .COMPLEX #14 tabs ondansetron 4 mg disintegrating 4 mg PO Q8H PRN nausea and 10/01/24 10/06/24 Unknown Rx tablet vomiting #30 tabs nitrofurantoin 100 mg PO BID 10/06/24 10/06/24 10/05/24 History monohydrate/macrocrystals 100 mg capsule Allergies Allergy/AdvReac Type Severity Reaction Status Date / Time [place]-GEC-CuA Reductase Allergy body aches Verified 10/06/24 12:41 Inhibitor PFSH Acute PFSH: Medical History Migraine Chronic cystitis Anxiety Hypertension Neuropathy Hyperlipemia Surgical History Hx of foot surgery History of tubal ligation (~2002) History of laparoscopic-assisted vaginal hysterectomy BSO 2017 History of cholecystectomy 2009 Family History Mother , age 65 Diabetes Cancer Pancreatic Heart disease CAD (coronary artery disease) Father Arrhythmia Denies family history of Anesthesia complication Bleeding disorder Social History Smoking and tobacco/nicotine status: never used tobacco/nicotine Alcohol intake: never Substance/Drug Use: never Housing: House Marital status: Current occupational status: employed Current occupation: [employer] Do you think of yourself as: Straight/Heterosexual Vitals/I&O/Wt Last Vital Signs Temp 97.4 F L 10/06/24 12:37 Pulse 79 10/06/24 16:30 Resp 16 10/06/24 16:30 BP 145/82 10/06/24 16:30 Pulse Ox 98 10/06/24 16:30 O2 Del Method Room Air 10/06/24 15:52 Weight last 48 hrs Weight 113.398 kg Physical Exam Narrative: She is alert awake oriented x 3, not in acute distress, morbidly obese Chest clear to auscultation bilaterally Cardiovascular normal heart sounds Abdomen soft nontender nondistended normal bowel sounds, left CVA tenderness present Extremities no edema present bilateral lower extremity Data 10/06/24 13:20 10/06/24 16:17 Micro: Microbiology 10/06/24 14:42 Blood Culture - Preliminary Blood SPECIMEN COLLECTED 10/06/24 14:42 Blood Culture - Preliminary Blood SPECIMEN COLLECTED A&P Assessment and plan (1) Acute hyperglycemia: (2) Acute pyelonephritis: (3) Type 2 diabetes mellitus: Qualifiers: 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 insulin use: with ferry terminal supervisor use Diabetes mellitus complication status: with hyperglycemia Qualified Code(s): E11.65 - Type 2 diabetes mellitus with hyperglycemia; Z79.4 - correction (current) use of insulin (4) Hyperlipemia: Qualifiers: Hyperlipidemia type: unspecified Qualified Code(s): E78.5 - Hyperlipidemia, unspecified (5) Hypertension: Qualifiers: Hypertension type: essential hypertension Qualified Code(s): I10 - Essential (primary) hypertension (6) Anxiety and depression: (7) Recurrent UTI: Plan Yara Robert is a 48 year old female with past medical history of diabetes mellitus type 2, hypertension, migraine headaches, anxiety, hyperlipidemia presented with complaint of abdominal pain, nausea and vomiting since 2 days and was found to have positive UA, CT abdomen pelvis consistent with left pyelonephritis, blood sugar of 522, 450, anion gap 20. Admit to CSU Acute left pyelonephritis-secondary to UTI WBC count 11.57 Will continue IV ceftriaxone 1 g daily Received 1 L normal saline bolus in ED Will encourage p.o. fluid intake Follow-up blood culture and urine culture Mild DKA-blood sugar of 522, 450 with anion gap of 20. Received 1 L fluid in ED Will encourage p.o. fluids Check fingersticks every 4 hours. Will continue STORAGE SPECIALIST Lantus 60 units twice daily Insulin lispro medium dose correction scale Will hold STORAGE SPECIALIST metformin and glipizide Recheck fingersticks every 4 hours for next 12 hours Follow-up labs in a.m. Hypertension-continue STORAGE SPECIALIST metoprolol and lisinopril DVT prophylaxis with subcutaneous heparin GI prophylaxis with IV Pepcid 20 mg twice daily CODE STATUS discussed with patient she is full code for now Attestations Medical Necessity Statement*: She needs continued hospitalization crossing 2 midnights for management of acute pyelonephritis, mild DKA with IV antibiotics, hyperglycemia management and close monitoring Time Spent in Patient Care: 45 minutes Coding Level of Care Code Acute Code for Chg Fwd Diagnoses Acute hyperglycemia R73.9 Acute pyelonephritis N10 Type 2 diabetes mellitus with hyperglycemia, with long-term current use of insulin E11.65; Z79.4 Diabetes mellitus assisted insulin use: with assisted use Diabetes mellitus complication status: with hyperglycemia Hyperlipidemia, unspecified hyperlipidemia type E78.5 Hyperlipidemia type: unspecified Essential hypertension I10 Hypertension type: essential hypertension Anxiety and depression F41.9; F32.9 Recurrent UTI N39.0 Time Spent (min) 45
[2024-10-06] MEDS: gabapentin 300 mg Capsule 900 MG PO (17:33)
[2024-10-06] MEDS: heparin 5,000 unit/mL INJ 1 mL 5000 UNIT SUBCUT (17:33)
[2024-10-06] MEDS: famotidine 20 mg/2 mL INJ IVP (17:34)
[2024-10-06] MEDS: lisinopril 20 mg Tablet PO (17:34)
[2024-10-06] MEDS: metoprolol tartrate 50 mg Tablet PO (17:34)
[2024-10-06] MEDS: fluticasone nasal spray 16gm Btl 1 SPRAY INTRANASAL (17:34)
[2024-10-06 17:44] LABS: Glucose 284 mg/dL (65-115)
[2024-10-06 17:52] LABS: Troponin 5 2HR < 6.0 ng/L (0-10); Troponin 5 2HR Delta 0 ABS# (0-10)
[2024-10-06] MEDS: insulin lispro 100 unit/1 mL SUBCUT ×2 (18:25→21:30)
[2024-10-06 20:23] LABS: Troponin 5 6HR Delta 0.00001 ng/L (0-12)
--- NOTE | 2024-10-06 20:46 | ECG_ITS ---
[facility] Date: 2024-[facility]-06 Pat Name: Yara Robert Department: Room: 103 Gender: Female Chain Pegger: : 1975 Requested By: Amado Arguelles Order Number: [id number] Lakisha MD: Kelsea Price M.D. Measurements Intervals [place] Rate: 69 P: 3 SC: 175 QRS: -38 QRSD: 160 T: 109 QT: 497 QTc: 534 Interpretive Statements SINUS RHYTHM LEFT AXIS DEVIATION [QRS AXIS < -30] LEFT BUNDLE BRANCH BLOCK [120+ ms QRS DURATION, 80+ ms Q/S IN V1/V2, 85+ ms R IN I/aVL/V5/V6] Compared to ECG 10/06/2024 15:48:20 Left bundle-branch block now present Intraventricular conduction delay no longer present Electronically Signed On 10-07-2024 13:52:09 AUTOMATION QA TESTER by Kelsea Price M.D. [email or web address]
[2024-10-06 21:01] LABS: Glucose Point of Care 310 mg/dL (70-110)
[2024-10-06] MEDS: insulin glargine 100 units/1 mL 60 UNIT SUBCUT (21:31)
[2024-10-07] VITALS (7 sets, daily range): BP systolic 113–156; BP diastolic 51–85; PULSE 68–78; RESP 16–20; TEMP 36.7–37.1; O2SAT 94–98
[2024-10-07 01:20] LABS: Glucose Point of Care 195 mg/dL (70-110)
[2024-10-07 03:56] LABS: Basophils # 0.1 10^3/uL (0.0-0.1); Basophils % 0.6 %; Eosinophils % 0.2 %; Hematocrit 37.3 % (36-47); Lymphocytes # 3.5 10^3/uL (0.8-4.8); Lymphocytes % 33.9 %; Mean Corpuscular HGB Conc 33.8 g/dL (30-55); Mean Corpuscular Hemoglobin 28.2 pg (27-33); Mean Corpuscular Volume 83.4 fl (85-98); Mean Platelet Volume 9.8 fL (7.4-10.4); Monocytes % 9.9 %; Neutrophils # 5.54 10^3/uL (1.8-7.7); Neutrophils % 53.7 %; Nucleated Red Blood Cells % 0 %; Platelet Count 343 10^3/cmm (157-399); Red Blood Count 4.47 10^6/uL (3.85-5.65); Red Cell Distribution Width 12.1 % (12.1-15.1); White Blood Count 10.32 10^3/uL (3.29-11.43)
[2024-10-07 04:13] LABS: Estmated Average Glucose 275; Hemoglobin A1C 11.2 % (4.0-6.0)
[2024-10-07 04:17] LABS: Alanine Aminotransferase 11 U/L (0-33); Albumin Level 3.2 g/dL (3.5-5.2); Alkaline Phosphatase 94 U/L (35-105); Anion Gap 15.5 (5-19); Aspartate Amino Transferase 27 U/L (0-32); Blood Urea Nitrogen 12 mg/dL (6-20); Calcium 8.5 mg/dL (8.5-10.5); Carbon Dioxide 26 mmol/L (22-29); Chloride 102 mmol/L (98-107); Creatinine Clr Calc Pharmacy 177.8608; Glomerular Filtration Rate 130.6 mL/min (90-130); Glucose 176 mg/dL (65-115); Osmolality Calculated 294 mOsm/kg (285-295); Potassium 3.5 mmol/L (3.5-5.1); Sodium 140 mmol/L (136-145); Total Bilirubin 0.4 mg/dL (0.15-1.2); Total Protein 6.2 g/dL (6.6-8.7)
[2024-10-07 04:22] LABS: Chol HDL Ratio 7.57 mg/dL (0.0-4.40); Cholesterol 159 mg/dL (0-200); HDL Cholesterol 21 mg/dL (60-100); LDL Cholesterol Calculated 94 mg/dL (50-129); LDL HDL Ratio 4.48 RATIO (0.00-3.22); Triglycerides 222 mg/dL (0-150)
[2024-10-07] MEDS: heparin 5,000 unit/mL INJ 1 mL 5000 UNIT SUBCUT ×2 (05:23→17:01)
[2024-10-07] MEDS: famotidine 20 mg/2 mL INJ IVP ×2 (05:23→17:01)
[2024-10-07] MEDS: insulin glargine 100 units/1 mL 60 UNIT SUBCUT ×2 (05:43→22:07)
[2024-10-07 06:20] LABS: Glucose Point of Care 216 mg/dL (70-110)
[2024-10-07] MEDS: fluticasone nasal spray 16gm Btl 1 SPRAY INTRANASAL (08:09)
[2024-10-07] MEDS: insulin lispro 100 unit/1 mL SUBCUT ×4 (08:10→22:07)
[2024-10-07] MEDS: montelukast sodium 10 mg Tablet PO (08:11)
[2024-10-07] MEDS: gabapentin 300 mg Capsule 900 MG PO ×2 (08:11→17:02)
[2024-10-07] MEDS: lisinopril 20 mg Tablet PO ×2 (08:11→17:02)
[2024-10-07] MEDS: metoprolol tartrate 50 mg Tablet PO ×2 (08:11→17:02)
[2024-10-07] MEDS: sertraline 100 mg Tablet 150 MG PO (08:11)
[2024-10-07 11:50] LABS: Glucose Point of Care 294 mg/dL (70-110)
--- NOTE | 2024-10-07 12:37 | P.PN_ITS ---
Subjective 2 Subjective: Seen her at bedside this morning. States feeling much better as compared to admission. Denies any new complaints. Abdominal pain and nausea resolved Medications: Reviewed: Yes Vitals/I&O/Wt Last Vital Signs Temp 98.3 F 10/07/24 11:17 Pulse 68 10/07/24 11:17 Resp 20 H 10/07/24 11:17 BP 142/74 10/07/24 11:17 Pulse Ox 98 10/07/24 11:17 O2 Del Method Room Air 10/07/24 11:17 10/06/24 10/07/24 10/07/24 22:59 06:59 14:59 Intake Total 2140 / 2140 500 / 2640 360 / 360 Output Total / Balance 2138 / 2138 500 / 2638 360 / 360 Weight last 48 hrs Weight 111.13 kg Weight 113.398 kg Weight 113.398 kg Physical Exam 2 Narrative: She is alert awake oriented x 3, not in acute distress, morbidly obese Chest clear to auscultation bilaterally Cardiovascular normal heart sounds Abdomen soft nontender nondistended normal bowel sounds Extremities no edema present bilateral lower extremity Data 10/07/24 03:17 10/07/24 03:17 Micro: Microbiology 10/06/24 13:15 Urine Culture - Preliminary Urine,Clean Catch 10/06/24 14:42 Blood Culture - Preliminary Blood SPECIMEN COLLECTED 10/06/24 14:42 Blood Culture - Preliminary Blood SPECIMEN COLLECTED A&P Assessment and plan (1) Acute hyperglycemia: (2) Acute pyelonephritis: (3) Type 2 diabetes mellitus: Qualifiers: Diabetes mellitus remote computer terminal operator insulin use: with penitentiary use Diabetes mellitus complication status: with hyperglycemia Qualified Code(s): E11.65 - Type 2 diabetes mellitus with hyperglycemia; Z79.4 - long-term (current) use of insulin (4) Hyperlipemia: Qualifiers: Hyperlipidemia type: unspecified Qualified Code(s): E78.5 - Hyperlipidemia, unspecified (5) Hypertension: Qualifiers: Hypertension type: essential hypertension Qualified Code(s): I10 - Essential (primary) hypertension (6) Anxiety and depression: (7) Recurrent UTI: Plan Yara Robert is a 48 year old female with past medical history of diabetes mellitus type 2, hypertension, migraine headaches, anxiety, hyperlipidemia presented with complaint of abdominal pain, nausea and vomiting since 2 days and was found to have positive UA, CT abdomen pelvis consistent with left pyelonephritis, blood sugar of 522, 450, anion gap 20. Admit to CSU Acute left pyelonephritis-secondary to UTI WBC count 11.57 Will continue IV ceftriaxone 1 g daily Received 1 L normal saline bolus in ED Will encourage p.o. fluid intake Follow-up blood culture and urine culture Mild DKA-blood sugar of 522, 450 with anion gap of 20. Received 1 L fluid in ED Will encourage p.o. fluids Check fingersticks every 4 hours. Will continue SERVICE DESK MANAGER Lantus 60 units twice daily Insulin lispro medium dose correction scale Will hold SERVICE DESK MANAGER metformin and glipizide Recheck fingersticks every 4 hours for next 12 hours Follow-up labs in a.m. Hypertension-continue SERVICE DESK MANAGER metoprolol and lisinopril DVT prophylaxis with subcutaneous heparin GI prophylaxis with IV Pepcid 20 mg twice daily CODE STATUS discussed with patient she is full code for now 10/07/24 Mild DKA resolved. Anion gap 15.5. Blood sugar trend noted, blood sugars 176, 216 currently. HbA1c 11.2, likely since she has been noncompliant recently with medications due to insurance issues. Leukocytosis resolved Will continue current management. Anticipating discharge in a.m. Attestations 2 Medical Necessity Statement*: Anticipating discharge in 24 hours Time Spent in Patient Care: 10 minutes Coding Level of Care Code Acute Code for Chg Fwd Diagnoses Acute hyperglycemia R73.9 Acute pyelonephritis N10 Type 2 diabetes mellitus with hyperglycemia, with long-term current use of insulin E11.65; Z79.4 Diabetes mellitus penitentiary insulin use: with penitentiary use Diabetes mellitus complication status: with hyperglycemia Hyperlipidemia, unspecified hyperlipidemia type E78.5 Hyperlipidemia type: unspecified Essential hypertension I10 Hypertension type: essential hypertension Anxiety and depression F41.9; F32.9 Recurrent UTI N39.0 Time Spent (min) 10
[2024-10-07] MEDS: cefTRIAXone 1,000 mg SDV 1000 MG IVP (14:52)
--- NOTE | 2024-10-07 16:32 | PC.NURSE ---
Provider is updated that Ms Robert has a headache right now like a 2 or 3 /10. She said that she has had it on and off today. But her face is also a little bit flush. No fever or other symptoms. She does not have anything for pain on her MAR. Provider ordered toradol 30 mg x 1.
[2024-10-07 16:50] LABS: Glucose Point of Care 195 mg/dL (70-110)
[2024-10-07] MEDS: ketorolac 30 mg/mL INJ IVP (17:00)
[2024-10-07 21:28] LABS: Glucose Point of Care 331 mg/dL (70-110)
[2024-10-08] VITALS: BP 126/72; PULSE 63; RESP 17; TEMP 36.9; O2SAT 94
[2024-10-08 04:00] VITALS: BP 156/72; PULSE 68; RESP 18; TEMP 36.6; O2SAT 95
[2024-10-08 05:06] LABS: Basophils % 0.5 %; Lymphocytes # 3.2 10^3/uL (0.8-4.8); Lymphocytes % 38.8 %; Mean Corpuscular HGB Conc 33.9 g/dL (30-55); Mean Corpuscular Hemoglobin 28.8 pg (27-33); Mean Corpuscular Volume 84.9 fl (85-98); Mean Platelet Volume 9.4 fL (7.4-10.4); Monocytes # 0.7 10^3/uL (0.2-0.9); Neutrophils # 4.02 10^3/uL (1.8-7.7); Neutrophils % 49.6 %; Nucleated Red Blood Cells % 0 %; Platelet Count 380 10^3/cmm (157-399); Red Blood Count 4.83 10^6/uL (3.85-5.65); Red Cell Distribution Width 12.2 % (12.1-15.1); White Blood Count 8.11 10^3/uL (3.29-11.43)
[2024-10-08] MEDS: heparin 5,000 unit/mL INJ 1 mL 5000 UNIT SUBCUT (05:20)
[2024-10-08] MEDS: insulin glargine 100 units/1 mL 60 UNIT SUBCUT (05:21)
[2024-10-08] MEDS: famotidine 20 mg/2 mL INJ IVP (05:21)
[2024-10-08 05:28] LABS: Alanine Aminotransferase 11 U/L (0-33); Albumin Level 3.4 g/dL (3.5-5.2); Alkaline Phosphatase 93 U/L (35-105); Anion Gap 14.4 (5-19); Aspartate Amino Transferase 11 U/L (0-32); Blood Urea Nitrogen 11 mg/dL (6-20); Calcium 8.8 mg/dL (8.5-10.5); Carbon Dioxide 28 mmol/L (22-29); Chloride 102 mmol/L (98-107); Creatinine Clr Calc Pharmacy 147.0606; Globulin 3.2 g/dL (1.3-4.6); Glomerular Filtration Rate 105.8 mL/min (90-130); Glucose 151 mg/dL (65-115); Osmolality Calculated 294 mOsm/kg (285-295); Potassium 3.4 mmol/L (3.5-5.1); Sodium 141 mmol/L (136-145); Total Bilirubin 0.3 mg/dL (0.15-1.2); Total Protein 6.6 g/dL (6.6-8.7)
[2024-10-08 06:23] LABS: Glucose Point of Care 178 mg/dL (70-110)
[2024-10-08 07:49] VITALS: BP 131/68; PULSE 68; RESP 20; TEMP 36.6
[2024-10-08] MEDS: insulin lispro 100 unit/1 mL SUBCUT (07:59)
[2024-10-08] MEDS: sertraline 100 mg Tablet 150 MG PO (07:59)
[2024-10-08] MEDS: metoprolol tartrate 50 mg Tablet PO (07:59)
[2024-10-08] MEDS: montelukast sodium 10 mg Tablet PO (07:59)
[2024-10-08] MEDS: fluticasone nasal spray 16gm Btl 1 SPRAY INTRANASAL (07:59)
[2024-10-08] MEDS: lisinopril 20 mg Tablet PO (07:59)
[2024-10-08] MEDS: gabapentin 300 mg Capsule 900 MG PO (07:59)
--- NOTE | 2024-10-08 08:27 | P.DS_ITS ---
Discharge Providers Date of Admission: 10/06/24 16:25 Date of Discharge: October 08, 2024 Attending Provider at Admission: Beth Draper MD Attending Provider at Discharge: Beth Draper MD Primary Care Provider: KARTIK Vance Diagnoses at Discharge Discharge Diagnosis (1) Acute hyperglycemia: Status: Acute (2) Acute pyelonephritis: Status: Acute (3) Type 2 diabetes mellitus: Status: Chronic Qualifiers: Diabetes mellitus complication status: with hyperglycemia Diabetes mellitus halfway insulin use: with halfway use Qualified Code(s): E11.65 - Type 2 diabetes mellitus with hyperglycemia; Z79.4 - oysterman (current) use of insulin (4) Hyperlipemia: Status: Acute Qualifiers: Hyperlipidemia type: unspecified Qualified Code(s): E78.5 - Hyperlipidemia, unspecified (5) Hypertension: Status: Acute Qualifiers: Hypertension type: essential hypertension Qualified Code(s): I10 - Essential (primary) hypertension (6) Anxiety and depression: Status: Acute (7) Recurrent UTI: Status: Acute Reason for Visit Reason for Visit: upper abd pain, NV Brief History: Yara Robert is a 48 year old female with past medical history of diabetes mellitus type 2, hypertension, migraine headaches, anxiety, hyperlipidemia presented with complaint of abdominal pain, nausea and vomiting since 2 days. As per the patient she started having pain/heaviness on the left side of her body and frequency of urination, hence went to urgent care clinic and was prescribed Macrobid for UTI. Since then she has been complaining of epigastric abdominal pain, crampy, associated with nausea and vomiting x 2 episodes, nonbilious nonbloody since 2 days. Denies any history of fever, back pain, flank pain, recent travel or diarrhea. She has history of recurrent UTI in the past, as per medical records she had E. coli UTI which is pansensitive. In ER she was found to have blood sugar of 522,450. She states she did take her Lantus 60 units this morning and has been compliant with her medications. Although blood sugars have not been well-controlled recently since she lost her insurance and has not been taking some of her diabetic medications. 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 In ER she was found to have WBC count of 11.5, sodium 130, anion gap 20, blood sugar of 522, lipase 84, UA showed urine glucose 3+, urine ketones 1+, leukocyte esterase 1+, WBCs 51-100 Chest x-ray negative for acute findings CT abdomen pelvis consistent with acute left pyelonephritis without abscess Hospital Course Hospital Course Admit to [facility] Acute left pyelonephritis-secondary to UTI WBC count 11.57 Will continue IV ceftriaxone 1 g daily Received 1 L normal saline bolus in ED Will encourage p.o. fluid intake Follow-up blood culture and urine culture Mild DKA-blood sugar of 522, 450 with anion gap of 20. Received 1 L fluid in ED Will encourage p.o. fluids Check fingersticks every 4 hours. 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 Anion gap 15.5. Blood sugar trend noted, blood sugars 176, 216 currently. HbA1c 11.2, likely since she has been noncompliant recently with medications due to insurance issues. Leukocytosis resolved Will continue current management. Anticipating discharge in a.m. 10/08/24 She is doing well otherwise, having her migraine MCKENZIE episode, had one episode of vomiting this morning. But UTI getting better. Will discharge her home to be followed up with primary in 1 week Physical Exam Narrative: She is alert awake oriented x 3, not in acute distress, morbidly obese Chest clear to auscultation bilaterally Cardiovascular normal heart sounds Abdomen soft nontender nondistended normal bowel sounds Extremities no edema present bilateral lower extremity Discharge Data Studies Completed and Pending Completed Studies During Hospitalization Category Date Time Status CT abdomen pelvis w con* [id number] Urgent Cat Scan 10/06/24 13:34 Completed XR chest 1V portable [id number] Stat Exams 10/06/24 13:16 Completed Pending at discharge Category Date Time Status Blood Culture Stat Lab 10/06/24 14:42 Results Comprehensive Metabolic Panel AM LABS Lab 10/09/24 04:00 Ordered Magnesium AM LABS Lab 10/09/24 04:00 Ordered Urine Culture Stat Lab 10/06/24 13:15 Results Radiology Impressions Chest X-Ray 10/06/24 13:16 IMPRESSION: No acute findings. Abdomen/Pelvis CT 10/06/24 13:34 IMPRESSION: Acute left pyelonephritis without abscess Laboratory Results WBC 8.11 10^3/uL (3.29-11.43) 10/08/24 04:34 RBC 4.83 10^6/uL (3.85-5.65) 10/08/24 04:34 Hgb 13.90 g/dL (11.27-16.99) 10/08/24 04:34 Hct 41.0 % (36-47) 10/08/24 04:34 MCV 84.9 fl (85-98) L 10/08/24 04:34 MCH 28.8 pg (27-33) 10/08/24 04:34 MCHC 33.9 g/dL (30-55) 10/08/24 04:34 RDW 12.2 % (12.1-15.1) 10/08/24 04:34 Plt Count 380 10^3/cmm (157-399) 10/08/24 04:34 MPV 9.4 fL (7.4-10.4) 10/08/24 04:34 Neut % (Auto) 49.6 % 10/08/24 04:34 Lymph % (Auto) 38.8 % 10/08/24 04:34 Grand % (Auto) 9.0 % 10/08/24 04:34 Eos % (Auto) 0.0 % 10/08/24 04:34 Baso % (Auto) 0.5 % 10/08/24 04:34 Neut # (Auto) 4.02 10^3/uL (1.8-7.7) 10/08/24 04:34 Lymph # (Auto) 3.2 10^3/uL (0.8-4.8) 10/08/24 04:34 Grand # (Auto) 0.7 10^3/uL (0.2-0.9) 10/08/24 04:34 Eos # (Auto) 0.0 10^3/uL (0.0-0.8) 10/08/24 04:34 Baso # (Auto) 0.0 10^3/uL (0.0-0.1) 10/08/24 04:34 Nucleated RBC % (auto) 0 % 10/08/24 04:34 Nucleated RBCs # 0.0 /100WBC 10/08/24 04:34 Sodium 141 mmol/L (136-145) 10/08/24 04:34 Potassium 3.4 mmol/L (3.5-5.1) L 10/08/24 04:34 Chloride 102 mmol/L (98-107) 10/08/24 04:34 Carbon Dioxide 28 mmol/L (22-29) 10/08/24 04:34 Anion Gap 14.4 (5-19) 10/08/24 04:34 BUN 11 mg/dL (6-20) 10/08/24 04:34 Creatinine 0.6 mg/dL (0.5-0.9) 10/08/24 04:34 GFR Calculation 105.8 mL/min (90-130) 10/08/24 04:34 Glucose 151 mg/dL (65-115) H 10/08/24 04:34 POC Glucose 178 mg/dL (70-110) H 10/08/24 06:15 Estimat Average Glucose 275 10/07/24 03:17 Hemoglobin A1c 11.2 % (4.0-6.0) H 10/07/24 03:17 Calculated Osmolality 294 mOsm/kg (285-295) 10/08/24 04:34 Calcium 8.8 mg/dL (8.5-10.5) 10/08/24 04:34 Magnesium 2.0 mg/dL (1.7-2.3) 10/08/24 04:34 Total Bilirubin 0.3 mg/dL (0.15-1.2) 10/08/24 04:34 AST 11 U/L (0-32) 10/08/24 04:34 ALT 11 U/L (0-33) 10/08/24 04:34 Alkaline Phosphatase 93 U/L (35-105) 10/08/24 04:34 Troponin T Baseline < 6 ng/L (0-10) 10/06/24 13:20 Troponin T 120 Minute < 6.0 ng/L (0-10) 10/06/24 16:17 Delta Troponin T 0 ABS# (0-10) 10/06/24 16:17 Troponin T Hi Sens 6Hr 6.00 ng/L (0-10) 10/06/24 19:32 Troponin T Hi Sens 6Hr Delta 0.06589 ng/L (0-12) 10/06/24 19:32 Total Protein 6.6 g/dL (6.6-8.7) 10/08/24 04:34 Albumin 3.4 g/dL (3.5-5.2) L 10/08/24 04:34 Globulin 3.2 g/dL (1.3-4.6) 10/08/24 04:34 Triglycerides 222 mg/dL (0-150) H 10/07/24 03:17 Cholesterol 159 mg/dL (0-200) 10/07/24 03:17 LDL Cholesterol, Calc 94 mg/dL (50-129) 10/07/24 03:17 HDL Cholesterol 21 mg/dL (60-100) L 10/07/24 03:17 LDL/HDL Ratio 4.48 RATIO (0.00-3.22) H 10/07/24 03:17 Cholesterol/HDL Ratio 7.57 mg/dL (0.0-4.40) H 10/07/24 03:17 Lipase 84 U/L (13-60) H 10/06/24 13:20 Urine Color Yellow (Yellow) 10/06/24 13:15 Urine Appearance Clear (CLEAR) 10/06/24 13:15 Urine pH 5.5 (5-7) 10/06/24 13:15 Ur Specific [place] 1.035 (1.005-1.030) H 10/06/24 13:15 Urine Protein Negative (Negative) 10/06/24 13:15 Urine Glucose (UA) 3+ (Normal) H 10/06/24 13:15 Urine Ketones 1+ (Negative) H 10/06/24 13:15 Urine Blood Negative (Negative) 10/06/24 13:15 Urine Nitrate Negative (Negative) 10/06/24 13:15 Urine Bilirubin Negative (Negative) 10/06/24 13:15 Urine Urobilinogen 1.0 mg/dL (Negative) 10/06/24 13:15 Ur Leukocyte Esterase 1+ (Negative) A 10/06/24 13:15 Urine RBC 3-5 /hpf (0-2) 10/06/24 13:15 Urine WBC 51-100 /hpf (0-5) H 10/06/24 13:15 Ur Squamous Epith Cells 0-5 /hpf (0-5) 10/06/24 13:15 Amorphous Sediment Not Reportable 10/06/24 13:15 Urine Bacteria None seen /hpf (NONE) 10/06/24 13:15 Hyaline Casts 2.05 /lpf 10/06/24 13:15 Serum Ketones Negative (Negative) 10/06/24 13:20 Vitals Last Vital Signs Temp 97.8 F 10/08/24 07:49 Pulse 68 10/08/24 07:49 Resp 20 H 10/08/24 07:49 BP 131/68 10/08/24 07:49 Pulse Ox 95 10/08/24 04:00 O2 Del Method Room Air 10/08/24 04:00 Discharge Plan Discharge Patient Disposition: Home Condition: Stable Prescriptions: New levofloxacin 750 mg tablet 750 mg PO DAILY 10 Days Qty: 10 0RF Continued fluticasone propionate [Flonase Allergy Relief] 50 mcg/actuation spray,suspension 1 spray intranasal BID Qty: 16 2RF Rx Instructions: administer into each nostril omeprazole 20 mg capsule,delayed release(DR/EC) See Rx Instructions .ROUTE .COMPLEX Qty: 60 5RF Dose Instruction: TAKE ONE CAPSULE BY MOUTH ONCE DAILY Rx Instructions: TAKE ONE CAPSULE BY MOUTH TWICE DAILY ondansetron 4 mg tablet,disintegrating 4 mg PO Q8H PRN (Reason: nausea and vomiting) Qty: 30 0RF montelukast 10 mg tablet See Rx Instructions .ROUTE .COMPLEX Qty: 30 2RF Dose Instruction: TAKE ONE TABLET BY MOUTH DAILY Rx Instructions: TAKE ONE TABLET BY MOUTH DAILY glipizide 5 mg tablet See Rx Instructions .ROUTE .COMPLEX Qty: 60 2RF Dose Instruction: TAKE ONE TABLET BY MOUTH TWICE DAILY Rx Instructions: TAKE ONE TABLET BY MOUTH TWICE DAILY sumatriptan succinate 100 mg tablet See Rx Instructions .ROUTE .COMPLEX Qty: 10 2RF Dose Instruction: TAKE ONE TABLET BY MOUTH AT ONSET OF HEADACHE; IF NO RELIEF, MAY REPEAT 1 TABLET AFTER AT LEAST 2 HOURS - MAXIMUM 2 TABLETS PER 24 HOURS Rx Instructions: TAKE ONE TABLET BY MOUTH AT ONSET OF HEADACHE; IF NO RELIEF, MAY REPEAT 1 TABLET AFTER AT LEAST 2 HOURS - MAXIMUM 2 TABLETS PER 24 HOURS albuterol sulfate [ProAir HFA] 90 mcg/actuation HFA aerosol inhaler See Rx Instructions .ROUTE .COMPLEX Qty: 8.5 2RF Dose Instruction: INHALE 2 PUFFS INTO LUNGS EVERY 6 HOURS NEEDED FOR SHORTNESS OF BREATH OR WHEEZING Rx Instructions: INHALE 2 PUFFS INTO LUNGS EVERY 6 HOURS NEEDED FOR SHORTNESS OF BREATH OR WHEEZING metoprolol tartrate 50 mg tablet See Rx Instructions .ROUTE .COMPLEX Qty: 60 5RF Dose Instruction: TAKE ONE TABLET BY MOUTH TWICE DAILY Rx Instructions: TAKE ONE TABLET BY MOUTH TWICE DAILY sertraline 100 mg tablet See Rx Instructions .ROUTE .COMPLEX Qty: 45 5RF Dose Instruction: TAKE ONE TABLET BY MOUTH DAILY Rx Instructions: TAKE 1.5 TABLET BY MOUTH DAILY metformin 500 mg tablet extended release 24 hr See Rx Instructions .ROUTE .COMPLEX Qty: 120 0RF Dose Instruction: TAKE TWO TABLETS BY MOUTH TWICE DAILY Rx Instructions: TAKE TWO TABLETS BY MOUTH TWICE DAILY gabapentin 300 mg capsule See Rx Instructions .ROUTE .COMPLEX Qty: 180 0RF Dose Instruction: TAKE THREE CAPSULES BY MOUTH TWICE DAILY Rx Instructions: TAKE THREE CAPSULES BY MOUTH TWICE DAILY cyclobenzaprine 10 mg tablet See Rx Instructions .ROUTE .COMPLEX Qty: 30 0RF Dose Instruction: TAKE ONE TABLET BY MOUTH THREE TIMES DAILY Rx Instructions: TAKE ONE TABLET BY MOUTH THREE TIMES DAILY diclofenac sodium 75 mg tablet,delayed release (DR/EC) See Rx Instructions .ROUTE .COMPLEX Qty: 60 0RF Dose Instruction: TAKE ONE TABLET BY MOUTH TWICE DAILY NEEDED FOR PAIN Rx Instructions: TAKE ONE TABLET BY MOUTH TWICE DAILY NEEDED FOR PAIN insulin aspart U-100 [Novolog FlexPen U-100 Insulin] 100 unit/mL (3 mL) insulin pen See Rx Instructions .ROUTE .COMPLEX Qty: 15 2RF Dose Instruction: INJECT UNDER SKIN THREE TIMES DAILY WITH SLIDING SCALE WITH MEALS; 150-200= 3 UNITS, 201-250= 5 UNITS, 251-300= 7 UNITS, 301-350= 9 UNITS, 351-400= 11 UNITS Rx Instructions: INJECT SC TID WITH SLIDING SCALE WITH MEALS; 150-200= 3 UNITS, 201-250= 5 UNITS, 251-300= 7 UNITS, 301-350= 9 UNITS, 351-400= 11 UNITS Levemir FlexPen 100 unit/mL (3 mL) insulin pen See Rx Instructions .ROUTE .COMPLEX Qty: 45 2RF Dose Instruction: INJECT 80 UNITS UNDER SKIN IN THE EVENING AND 40 UNITS IN THE MORNING - MAXIMUM DAILY DOSE 120 UNITS - 37 DAY SUPPLY Rx Instructions: INJECT 60 UNITS UNDER SKIN IN THE EVENING AND 60 UNITS IN THE MORNING - MAXI MUM DAILY DOSE 120 UNITS - 37 DAY SUPPLY hydroxyzine HCl 50 mg tablet See Rx Instructions .ROUTE .COMPLEX Qty: 60 0RF Dose Instruction: TAKE ONE TABLET BY MOUTH TWICE DAILY NEEDED FOR ANXIETY / RASH / SLEEP Rx Instructions: TAKE ONE TABLET BY MOUTH TWICE DAILY NEEDED FOR ANXIETY / RASH / SLEEP finasteride 1 mg tablet See Rx Instructions .ROUTE .COMPLEX Qty: 30 2RF Dose Instruction: TAKE ONE TABLET BY MOUTH DAILY Rx Instructions: TAKE ONE TABLET BY MOUTH DAILY lisinopril 20 mg tablet See Rx Instructions .ROUTE .COMPLEX Qty: 14 0RF Dose Instruction: TAKE ONE TABLET BY MOUTH TWICE DAILY Rx Instructions: TAKE ONE TABLET BY MOUTH TWICE DAILY nitrofurantoin monohyd/m-cryst 100 mg capsule 100 mg PO BID No Action (DME) Comfort EZ Pen Moss 33 gauge x 5/16 needle See Rx Instructions .Route Qty: 100 12RF Rx Instructions: use with lantus twice daily (DME) Dexcom G6 Recreation Counselor Misc See Rx Instructions .ROUTE .COMPLEX Qty: 1 0RF Dose Instruction: USE DIRECTED Rx Instructions: USE DIRECTED (DME) Dexcom G6 Transmitter Device See Rx Instructions .ROUTE .COMPLEX Qty: 1 4RF Dose Instruction: USE DIRECTED - REPLACE EVERY THREE MONTHS Rx Instructions: USE DIRECTED - REPLACE EVERY THREE MONTHS (DME) Dexcom G6 Sensor Device See Rx Instructions .ROUTE .COMPLEX Qty: 3 11RF Dose Instruction: USE DIRECTED - CHANGE EVERY 10 DAYS Rx Instructions: USE DIRECTED - CHANGE EVERY 10 DAYS (DME) Autot titrating CPAP 6-16cm and supplies See Rx Instructions .Route .MEDSUPPLY Qty: 1 0RF Rx Instructions: As directed (DME) FreeStyle Nita 3 Sensor Device See Rx Instructions .Route Qty: 1 12RF Rx Instructions: use to check blood sugar 4x daily and prn (DME) FreeStyle Nita 3 Fontana Misc See Rx Instructions .Route Qty: 1 12RF Rx Instructions: check blood sugar 4x daily and PRN Discharge Orders: Discharge Order (Routine); Ordered 10/08/24 Ordered By: Beth Draper Referrals: Paulina Mayer, DIVERSITY INTERN [Primary Care Provider] - Discharge Diet: Diabetic Discharge Activity: Increase activity as tolerated Patient Instructions: Opioid Safety Activity Restrictions/Additional Instructions: follow up on urine culture with your primary care Discharge Attestations Time Spent in Discharge Care*: less than 30 min Quality Metrics Clinical Quality Measures [ No reported AMI, CVA or VTE this stay] Coding Level of Care Code Acute Code for Chg Fwd Diagnoses Acute hyperglycemia R73.9 Acute pyelonephritis N10 Type 2 diabetes mellitus with hyperglycemia, with long-term current use of insulin E11.65; Z79.4 Diabetes mellitus complication status: with hyperglycemia 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
[2024-10-08 11:32] LABS: Glucose Point of Care 183 mg/dL (70-110)
[2024-10-08] MEDS: ketorolac 10 mg Tablet 30 MG PO (11:50)
[2024-10-08 12:00] VITALS: BP 122/60
--- NOTE | 2024-10-08 12:30 | PC.NURSE ---
Patient home scripts called in to [facility], [address] loo. Patient discharged home. Vitals stable upon departure.
[2024-10-08 12:31] VITALS: BP 122/60; PULSE 62; RESP 18; TEMP 37; O2SAT 94
== END 2024-10-08 12:32 | disposition home or self-care (01) | DRG 689 ==
LOC: ER 14:57 → CSU 16:25
PROVIDERS: Emergency Medicine; Admitting Provider Internal Medicine; Emergency Provider Physician Assistant; PCP Nurse Practitioner Family; Visit Provider Internal Medicine
DX: N10 Acute pyelonephritis (principal); E11.10 Type 2 diabetes mellitus with ketoacidosis without coma; E78.5 Hyperlipidemia, unspecified; I10 Essential (primary) hypertension; F41.9 Anxiety disorder, unspecified; F32.A Depression, unspecified; G43.909 Migraine, unspecified, not intractable, without status migrainosus; T50.916A Underdosing of multiple unspecified drugs, medicaments and biological substances, initial encounter; E11.40 Type 2 diabetes mellitus with diabetic neuropathy, unspecified; E66.01 Morbid (severe) obesity due to excess calories; Z68.37 Body mass index [BMI] 37.0-37.9, adult; Z91.120 Patient's intentional underdosing of medication regimen due to financial hardship; Z87.440 Personal history of urinary (tract) infections; Z79.4 Long term (current) use of insulin; Z79.84 Long term (current) use of oral hypoglycemic drugs
CPT/HCPCS: 36415; 36416; 71045; 74177; 80053; 80061; 81001; 82009; 82947; 82962; 83036; 83690; 83735; 84484; 85025; 87040; 87086; 93005; 96361; 96372; 96374; 96375; 99285; J0696; J1644; J1815; J1885; J3490; J7030

== ENCOUNTER → 2024-10-19 09:27 | Outpatient (BNVA) | payer MEDICAID, SELFPAY | PROVIDERS: PCP Nurse Practitioner Family; Visit Provider Nurse Practitioner Family | DX: E11.65 Type 2 diabetes mellitus with hyperglycemia (principal); Z79.4 Long term (current) use of insulin; N39.0 Urinary tract infection, site not specified | CPT/HCPCS: 81003; 87086 ==

== ENCOUNTER → 2024-11-01 12:55 | Outpatient (BNVA) | payer MEDICAID, SELFPAY | PROVIDERS: PCP Nurse Practitioner Family; Visit Provider Nurse Practitioner Family | DX: E11.65 Type 2 diabetes mellitus with hyperglycemia (principal); Z79.4 Long term (current) use of insulin | CPT/HCPCS: 80053 ==

== ENCOUNTER → 2025-02-01 08:10 | Outpatient (BNVA) | payer OTHER, SELFPAY | PROVIDERS: PCP Nurse Practitioner Family; Visit Provider Nurse Practitioner Family | DX: E11.65 Type 2 diabetes mellitus with hyperglycemia (principal); Z79.4 Long term (current) use of insulin; E78.5 Hyperlipidemia, unspecified; E55.9 Vitamin D deficiency, unspecified | CPT/HCPCS: 80053; 80061; 82043; 82306; 83036; 84443; 85025 ==

== ENCOUNTER → 2025-05-11 15:21 | Outpatient (BNVA) | payer OTHER, MEDICAID, SELFPAY | PROVIDERS: PCP Nurse Practitioner Family; Visit Provider Clinical Nurse Specialist Adult Health | DX: N39.0 Urinary tract infection, site not specified (principal) | CPT/HCPCS: 81000; 87086 ==

== ENCOUNTER → 2025-05-18 08:45 | Outpatient (BNVA) | payer OTHER, MEDICAID, SELFPAY | PROVIDERS: PCP Nurse Practitioner Family; Visit Provider Nurse Practitioner Family | DX: E11.65 Type 2 diabetes mellitus with hyperglycemia (principal); Z79.4 Long term (current) use of insulin; E55.9 Vitamin D deficiency, unspecified | CPT/HCPCS: 80053; 80061; 82306; 82607; 83036; 84443; 85025 ==

== ENCOUNTER → 2025-08-18 08:33 | Outpatient (BNVA) | payer MEDICAID, SELFPAY | PROVIDERS: PCP Nurse Practitioner Family; Visit Provider Nurse Practitioner Family | DX: E11.65 Type 2 diabetes mellitus with hyperglycemia (principal); Z79.4 Long term (current) use of insulin; E55.9 Vitamin D deficiency, unspecified; I10 Essential (primary) hypertension | CPT/HCPCS: 80053; 80061; 82306; 82607; 83036; 84443; 85025 ==

== ENCOUNTER 2025-08-19 08:45 | Outpatient (CLI) | payer MEDICAID, OTHER, SELFPAY ==
--- NOTE | 2025-08-19 09:20 | MM_ITS ---
WS: [id number] BILATERAL SCREENING DIGITAL TOMOSYNTHESIS MAMMOGRAM WITH CAD HISTORY: Z12.39 - Encounter for other screening for malignant neop... COMPARISON: 02/14/2023 Bilateral CC and MLO views with tomosynthesis and synthetic mammography submitted. Computer aided detection analyzed. Breast composition: There are scattered areas of fibroglandular density. No suspicious masses, microcalcifications or architectural distortion. Benign cluster of calcifications in the anterior RIGHT breast. No suspicious grouping of calcifications or distortion. MM/MM scr BI tomosynthesis [id number] IMPRESSION: BI-RADS: 2 - Benign. FOLLOW UP: 1 Year Follow-up
== END 2025-08-19 08:46 | disposition home or self-care (01) ==
PROVIDERS: PCP Nurse Practitioner Family; Visit Provider Nurse Practitioner Family
DX: Z12.31 Encounter for screening mammogram for malignant neoplasm of breast (principal); R92.323 Mammographic fibroglandular density, bilateral breasts; R92.1 Mammographic calcification found on diagnostic imaging of breast
CPT/HCPCS: 77063; 77067

== ENCOUNTER 2025-09-20 06:44 | Day surgery (SDC) | payer OTHER, MEDICAID, BC, SELFPAY ==
[2025-09-20 07:31] VITALS: BP 113/68; PULSE 71; RESP 18; TEMP 36.6; O2SAT 98; BMI 39.8
--- NOTE | 2025-09-20 07:44 | ANES.PREANE2 ---
Pre-Anesthetic Assessment Height/Weight: Height 1.73 m Weight 118.841 kg Temp Pulse Resp BP Pulse Ox O2 Del Method 97.8 F 71 18 113/68 98 Room Air 09/20/25 07:31 09/20/25 07:31 09/20/25 07:31 09/20/25 07:31 09/20/25 07:31 09/20/25 07:31 Preop Diagnosis: Screening Operation Date: 09/20/25 08:30 Proposed Procedures p Colonoscopy [id number] G0121 Z12.11(Not Applicable) - Presley Thakkar MD Familial anesthetic complications: none Was Beta Yaa taken within 24 hours: Yes (metoprolol last night) Was Clonidine taken within 24 hours: N/A Last intake: Intake Last Liquid Date 09/19/25 Last Liquid Time 22:30 Last Solid Date 09/18/25 Social No alcohol and No tobacco Exam alert, oriented x 3, clear to auscultation bilaterally and regular rate & rhythm Airway Cervical ROM: within normal limits Mallampati: Class II Dentition: partials Pulmonary Sleep Apnea CV/HEM Hypertension None reported GI None reported Metabolic Diabetes Mellitus, Hyperlipidemia and Morbid Obesity [facility] Lower Back Pain Neuropsych Anxiety and Depression Anesthetic Plan ASA status: 3 Anesthesia: Anesthesia Evaluation and MAC Risk of > 500 ml blood loss (7ml/kg in children): No Medications/Allergies Home Medications ?Medication ?Instructions ?Recorded ?Confirmed ?Last Taken ?Type pen needle, diabetic 33 gauge x #100 ea 01/28/23 08/19/25 Unknown Rx 5/16 (Comfort EZ Pen [place]) sumatriptan succinate 100 mg tablet See Rx Instructions .Route 06/02/23 09/20/25 Unknown Rx .COMPLEX #10 tabs Autot titrating CPAP 6-16cm and #1 ea 11/21/23 08/19/25 Unknown Rx supplies blood-glucose transmitter (Dexcom #1 ea 10/19/24 08/19/25 Unknown Rx G6 Transmitter device) blood-glucose,blood bank attendant,cont #1 ea 10/19/24 08/19/25 Unknown Rx (Dexcom G6 Database Security Expert) auto titrating cpap 6-16cm #1 ea 02/10/25 08/19/25 Unknown Rx pantoprazole 40 mg tablet,delayed 40 mg PO DAILY #30 tabs 07/29/25 09/15/25 09/18/25 Rx release gabapentin 300 mg capsule See Rx Instructions .Route 08/09/25 09/15/25 09/18/25 Rx .COMPLEX #120 caps insulin lispro 100 unit/mL See Rx Instructions .Route 08/09/25 09/15/25 09/18/25 Rx subcutaneous pen .COMPLEX #15 mL blood-glucose sensor (Dexcom G6 #3 ea 08/25/25 Unknown Rx Sensor device) ergocalciferol (vitamin D2) 1,250 1,250 mcg PO .weekly #12 caps 08/25/25 09/15/25 09/18/25 Rx mcg (50,000 unit) capsule glipizide 5 mg tablet 5 mg PO BID 09/01/25 09/15/25 09/18/25 History Probiotic 2 cap PO DAILY 09/15/25 09/15/25 09/18/25 History albuterol sulfate 90 mcg/actuation 2 puff inhalation Q6H PRN 09/15/25 09/20/25 Unknown History aerosol inhaler Shortness Of Breath Or Wheezing insulin glargine-yfgn 100 unit/mL 60 unit SUBCUT BID 09/15/25 09/15/25 09/18/25 History (3 mL) subcutaneous pen (Semglee (insulin glargine-yfgn) Pen) lisinopril 20 mg tablet 20 mg PO BID 09/15/25 09/15/25 09/19/25 History metformin 500 mg tablet,extended 1,000 mg PO BID 09/15/25 09/15/25 09/19/25 History release 24 hr metoprolol tartrate 50 mg tablet 50 mg PO BID 09/15/25 09/15/25 09/19/25 History sertraline 100 mg tablet 100 mg PO DAILY 09/15/25 09/15/25 09/18/25 History tirzepatide 5 mg/0.5 mL 5 mg SUBCUT .weekly 09/15/25 09/15/25 09/13/25 History subcutaneous pen injector (Gretel) triamterene 37.5 1 tab PO DAILY 09/15/25 09/15/25 09/18/25 History mg-hydrochlorothiazide 25 mg tablet Allergies Allergy/AdvReac Type Severity Reaction Status Date / Time [id number]-SjD Reductase Allergy body aches Verified 09/15/25 12:15 Inhibitor Current Medications Generic Name Dose Route Start Last Admin Trade Name Freq PRN Reason Stop Dose Admin Sodium Chloride 1,000 mls @ 15 mls/hr 09/20/25 06:59 09/20/25 07:30 Sodium Chloride 0.9% IV 09/21/25 06:58 15 mls/hr .Q24H PRN Administration COLONOSCOPY FLUIDS PFSH Anesthesia Medical History Urinary tract infection, site not specified Anxiety and depression Hypertension Hyperlipemia Type 2 diabetes mellitus Recurrent UTI Migraine Chronic cystitis Anxiety Neuropathy Surgical History Hx of foot surgery History of tubal ligation (~2002) History of laparoscopic-assisted vaginal hysterectomy BSO 2017 History of cholecystectomy 2009 Family History Mother , age 65 Diabetes Cancer Pancreatic Heart disease CAD (coronary artery disease) Father Arrhythmia Denies family history of Anesthesia complication Bleeding disorder Social History Smoking and tobacco/nicotine status: never used tobacco/nicotine Alcohol intake: never Substance/Drug Use: never Housing: House Marital status: Current occupational status: employed Current occupation: [employer] Do you think of yourself as: Straight/Heterosexual
--- NOTE | 2025-09-20 08:12 | W.PM.OPSFHP ---
Same Day Surgery H&P Indication for Procedure/HPI DATE OF PROCEDURE: September 20, 2025 CHIEF COMPLAINT/INDICATIONFOR SURGICAL PROCEDURE: Screening colonoscopy PREOP DIAGNOSIS: Screening colonoscopy PLANNED PROCEDURE: Operation Date: 09/20/25 08:30 Proposed Procedures p Colonoscopy [id number] Z12.11(Not Applicable) - Presley Thakkar MD Medications/Allergies* Home Medications ?Medication ?Instructions ?Recorded ?Confirmed ?Type glipizide 5 mg tablet 5 mg PO BID 09/01/25 09/15/25 History Probiotic 2 cap PO DAILY 09/15/25 09/15/25 History albuterol sulfate 90 mcg/actuation 2 puff inhalation Q6H PRN 09/15/25 09/20/25 History aerosol inhaler Shortness Of Breath Or Wheezing insulin glargine-yfgn 100 unit/mL 60 unit SUBCUT BID 09/15/25 09/15/25 History (3 mL) subcutaneous pen (Semglee (insulin glargine-yfgn) Pen) lisinopril 20 mg tablet 20 mg PO BID 09/15/25 09/15/25 History metformin 500 mg tablet,extended 1,000 mg PO BID 09/15/25 09/15/25 History release 24 hr metoprolol tartrate 50 mg tablet 50 mg PO BID 09/15/25 09/15/25 History sertraline 100 mg tablet 100 mg PO DAILY 09/15/25 09/15/25 History tirzepatide 5 mg/0.5 mL 5 mg SUBCUT .weekly 09/15/25 09/15/25 History subcutaneous pen injector (Gretel) triamterene 37.5 1 tab PO DAILY 09/15/25 09/15/25 History mg-hydrochlorothiazide 25 mg tablet Allergies/Adverse Reactions Allergy/AdvReac Type Severity Reaction Status Date / Time [id number] Reductase Allergy body aches Verified 09/15/25 12:15 Inhibitor Current Medications: Generic Name Dose Route Start Last Admin Trade Name Freq PRN Reason Stop Dose Admin Sodium Chloride 1,000 mls @ 15 mls/hr 09/20/25 06:59 09/20/25 07:30 Sodium Chloride 0.9% IV 09/21/25 06:58 15 mls/hr .Q24H PRN Administration COLONOSCOPY FLUIDS Pertinent History/Comorbid Conditions* Medical History (Updated 06/09/25 @ 08:17 by KARTIK Vance) Urinary tract infection, site not specified Anxiety and depression Hypertension Hyperlipemia Type 2 diabetes mellitus Recurrent UTI Migraine Chronic cystitis Anxiety Neuropathy Surgical History (Updated 02/03/23 @ 08:13 by KARTIK Vance) Hx of foot surgery History of tubal ligation (~2002) History of laparoscopic-assisted vaginal hysterectomy BSO 2017 History of cholecystectomy 2010 Family History (Updated 12/19/20 @ 13:54 by Mervat Terrazas RN) Mother, age 65 Diabetes Mother CAD (coronary artery disease) Mother Arrhythmia Father Heart disease Mother Cancer Mother Pancreatic Denies family history of Anesthesia complication Bleeding disorder Social History Smoking and tobacco/nicotine status: never used tobacco/nicotine Alcohol intake: never Substance/Drug Use: never Housing: House Marital status: Current occupational status: employed Current occupation: [employer] Do you think of yourself as: Straight/Heterosexual Pertinent Exam Findings alert, oriented x 3, clear to auscultation bilaterally, regular rate & rhythm and procedure specific exam findings Abdomen soft nontender nondistended Recommendations Risks and benefits of procedure reviewed and Patient/family agree to proceed Surgery/Procedure today Other Plans: I have explained the risks and benefits of a screening colonoscopy and the patient agrees to proceed. Patient is average for colon cancer. Patient understands that hemoccult is an alternative and still decides to proceed with colonoscopy. Had an extensive discussion with the patient. Answered all questions. Patient understands that the risks include a 1% risk of iatrogenic perforation and risk of aspiration. Coding Level of Care Code Acute Code for [facility] Fwd
[2025-09-20 08:37] VITALS: BP 110/64; PULSE 74; RESP 16; TEMP 36.5; O2SAT 98
[2025-09-20 08:47] VITALS: BP 120/66; PULSE 72; RESP 18; O2SAT 98
--- NOTE | 2025-09-20 09:00 | ANE.PACU2 ---
Inpatient post-anesthesia follow up: Airway intact: Yes Vital signs: Temperature 97.7 F Pulse Rate 72 Respiratory Rate 18 Blood Pressure 120/66 Pulse Oximetry 98 Oxygen Delivery Me thod Room Air Oxygen Flow Rate Fraction of Inspir ed Oxygen Hydration adequate: Yes Nausea and vomiting: No Pain level: 1 Mental status: Baseline
== END 2025-09-20 09:00 | disposition home or self-care (01) ==
PROVIDERS: PCP Nurse Practitioner Family; Visit Provider Student in an Organized Health Care Education/Training Program
PROC: 0DJD8ZZ Inspection of Lower Intestinal Tract, Via Natural or Artificial Opening Endoscopic (ICD-10-PCS; CPT 45378; principal; 2025-09-20 08:30)
DX: Z12.11 Encounter for screening for malignant neoplasm of colon (principal); K64.4 Residual hemorrhoidal skin tags; D12.5 Benign neoplasm of sigmoid colon; Z79.4 Long term (current) use of insulin; Z79.84 Long term (current) use of oral hypoglycemic drugs; E11.9 Type 2 diabetes mellitus without complications; E78.5 Hyperlipidemia, unspecified; F41.8 Other specified anxiety disorders; G62.9 Polyneuropathy, unspecified; G47.30 Sleep apnea, unspecified; E66.01 Morbid (severe) obesity due to excess calories; Z68.39 Body mass index [BMI] 39.0-39.9, adult; K21.9 Gastro-esophageal reflux disease without esophagitis
CPT/HCPCS: 36416; 45385; 82962; 88305; J2704; J7030

== ENCOUNTER → 2025-10-14 11:46 | Outpatient (BNVA) | payer OTHER, MEDICAID, SELFPAY | PROVIDERS: PCP Nurse Practitioner Family; Visit Provider Clinical Nurse Specialist Adult Health | DX: R30.0 Dysuria (principal); N30.00 Acute cystitis without hematuria | CPT/HCPCS: 81000; 87086 ==